=== PATIENT | male | born 1935 | race Caucasian/White ===

== ENCOUNTER → 2022-08-13 10:54 | Outpatient (BNVA) | payer MEDICARE, SELFPAY | PROVIDERS: Family Provider Family Medicine; PCP Family Medicine; Visit Provider Nurse Practitioner Family | DX: I12.9 Hypertensive chronic kidney disease with stage 1 through stage 4 chronic kidney disease, or unspecified chronic kidney disease (principal); N18.32 Chronic kidney disease, stage 3b | CPT/HCPCS: 80048; 99213; 99214 ==

== ENCOUNTER → 2022-11-12 08:35 | Outpatient (BNVA) | payer MEDICARE, SELFPAY | PROVIDERS: Family Provider Family Medicine; PCP Family Medicine; Visit Provider Internal Medicine | DX: I25.10 Atherosclerotic heart disease of native coronary artery without angina pectoris (principal); I12.9 Hypertensive chronic kidney disease with stage 1 through stage 4 chronic kidney disease, or unspecified chronic kidney disease; N18.9 Chronic kidney disease, unspecified | CPT/HCPCS: 99214 ==

== ENCOUNTER → 2022-11-22 09:34 | Outpatient (BNVA) | payer MEDICARE, SELFPAY | PROVIDERS: Family Provider Family Medicine; PCP Family Medicine; Visit Provider Podiatrist Foot & Ankle Surgery | DX: I73.9 Peripheral vascular disease, unspecified (principal); B35.1 Tinea unguium; R60.9 Edema, unspecified; M20.41 Other hammer toe(s) (acquired), right foot; M20.42 Other hammer toe(s) (acquired), left foot; B35.3 Tinea pedis | CPT/HCPCS: 11721; 99204 ==

== ENCOUNTER 2022-11-25 16:55 | Inpatient (IN) | payer MEDICARE, SELFPAY ==
[2022-11-25 17:16] VITALS: BP 135/74; PULSE 130; RESP 17; TEMP 36.8; O2SAT 95; BMI 23.2
--- NOTE | 2022-11-25 17:18 | XRR_ITS ---
PROCEDURE INFORMATION: Exam: XR Chest Exam date and time: 11/25/2022 5:25 PM Age: 87 years old Clinical indication: Pain; Chest pressure; Additional info: Chest pain, body aches, today TECHNIQUE: Imaging protocol: Radiologic exam of the chest. Views: 1 view. COMPARISON: CR XR chest 1V [id number] 02/24/2018 12:33 PM FINDINGS: Lungs: Minimal atelectasis in the lung bases. The lungs are otherwise clear. Pleural spaces: Unremarkable. No pleural effusion. No pneumothorax. Heart/Mediastinum: Unremarkable. No cardiomegaly. Bones/joints: Degenerative changes of the spine. XR/XR chest 1V portable [id number] IMPRESSION: No acute findings.
--- NOTE | 2022-11-25 17:32 | ED_ITS ---
Documented by User: Tramaine Montoya DO 12/02/22 07:48 HPI - Chest Pain General: Chief Complaint: Chest Pain Stated Complaint: HEADACHE/ CHEST PAIN Time Seen by Provider: 11/25/22 17:18 Source: patient Mode of arrival: ambulatory History of Present Illness: 87-year-old male presents to the emergency room complaining of chest pain. Patient was at rest at home had a brief episode of chest pain he also had a headache with it as well. EMS was called he was given 324 of aspirin and 1 sublingual nitro at the time he arrived to the emergency room is a complete resolution of all of his symptoms he had some mild shortness of breath no diaphoresis or nausea. MD complaint: chest pain Associated symptoms: Deny abdominal pain, dyspnea, fever(s), nausea, palpitations or vomiting Review of Systems Const: Denies: fever(s), chills, body aches, change in appetite, fatigue or malaise ENMT: Denies: throat pain, ear or mastoid pain, nasal discharge or nasal congestion Card: Reports: chest pain; Denies: palpitations, irregular heart rhythm, edema, dyspnea on exertion or orthopnea Resp: Denies: dyspnea, productive cough or non-productive cough GI: Denies: abdominal pain, nausea, vomiting, hematemesis, coffee ground emesis, diarrhea, constipation, bloating, hematochezia or melena : Denies: flank pain, dysuria, urinary frequency or urinary urgency Skin/Breast: Denies: rash or pruritus PFSH ED PFSH: Medical History (Updated 11/30/22 @ 00:01 by JOHN Reilly) Acute kidney injury (nontraumatic) BPH NOS w ur obs/LUTS Chronic kidney disease Coronary artery disease History of anemia of chronic disease History of cellulitis Hx of congestive heart failure Hx of diverticulitis of colon Hx of gastroesophageal reflux (GERD) Hx of hyperlipidemia Hx of osteoarthritis Hypertension Neutrophilic leukocytosis Non-ST elevation ND (NSTEMI) Thrombocytopenia Surgical History History of knee replacement History of tonsillectomy History of total hip replacement bilateral Hx of cataract extraction BILATERAL Hx of cholecystectomy Family History Father , in his 80's Diabetes Mother , in her 80's Stroke Other CAD (coronary artery disease) Cancer Hypertension Social History Smoking and tobacco status: never smoked Alcohol intake: former Adopted: No Caregiver/support person: No Lives independently: No Household members: spouse Marital status: Current occupational status: retired Current gender identity: Male Physical Exam 2 Const: GENERAL APPEARANCE: cooperative and comfortable ORIENTATION/CONSCIOUSNESS: Yes awake, Yes oriented to person, Yes oriented to place and Yes oriented to time HENMT: COMMON NORMALS: normocephalic, atraumatic and hearing grossly normal bilaterally HEAD & SCALP: normocephalic and atraumatic Resp: COMMON NORMALS: normal respiratory effort, No retractions, No use of accessory muscles and clear to auscultation bilaterally AUSCULTATION: clear to auscultation bilaterally Cardio: COMMON NORMALS: regular rate, regular rhythm and No murmurs present (Cardio) RATE: regular rate RHYTHM: regular rhythm GI: COMMON NORMALS: Soft to palpation and No hepatosplenomegaly present AUSCULTATION: Yes normoactive bowel sounds PALPATION: Yes Soft to palpation, No Tenderness to palpation present (GI), No Guarding due to palpation present (GI) and Yes No hepatosplenomegaly present Extremity: COMMON NORMALS: normal to inspection, capillary refill normal, no clubbing, cyanosis or edema, no calf tenderness and no pedal edema Neuro: SENSORIUM/ORIENTATION: Yes oriented to person, Yes oriented to place and Yes oriented to time Skin: COMMON NORMALS: no rashes or lesions noted GENERAL SKIN EXAM: no rashes or lesions noted Course Vital Signs: Vital signs: Vital Signs Temperature 97.3 F L 11/29/22 12:00 Pulse Rate 96 11/29/22 12:00 Respiratory Rate 18 11/29/22 12:00 Blood Pressure 157/72 11/29/22 12:00 Pulse Oximetry 95 11/29/22 12:00 Oxygen Delivery Me thod 11/29/22 12:00 MDM - Chest Pain Medical Decision Making Care signed out to Dr. Chamorro at change of shift. See final notes for diagnosis and disposition. Patient presents here with chest pain 2-hour troponin did go up by 17 consistent with an NSTEMI has been pain-free here his EKG is a normal I spoke to cardiology along with hospitalist and will admit at this time for ACS rule out. Lab Data 11/25/22 17:45 11/25/22 17:45 Radiology Impressions Chest X-Ray 11/25/22 17:18 IMPRESSION: No acute findings. Chest/Abdomen/Pelvis CT 11/26/22 06:27 IMPRESSION: 1. Lung evaluation is limited by significant breathing artifact. No dense areas of consolidation identified. Subtle areas of pneumonitis or endobronchial pneumonia may be obscured. 2. No adenopathy in the chest, abdomen or pelvis. 3. Colonic diverticular disease. No acute diverticulitis. 4. Normal appendix. 5. Prior cholecystectomy. 6. Bilateral renal cysts. No renal obstruction. 7. 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 Component of stenosis is likely. No ischemic changes at this time. Laboratory Results WBC 19.1 10^3/uL (4.0-10.0) H 11/25/22 17:45 RBC 3.97 10^6/uL (4.1-5.3) L 11/25/22 17:45 Hgb 12.4 g/dL (11.7-16.6) 11/25/22 17:45 Hct 36.9 % (42.0-52.0) L 11/25/22 17:45 MCV 92.9 fl (80-94) 11/25/22 17:45 MCH 31.2 pg (28.0-34.0) 11/25/22 17:45 MCHC 33.6 g/dL (30.0-36.0) 11/25/22 17:45 RDW 14.3 % (12.1-15.1) 11/25/22 17:45 Plt Count 129 10^3/cmm (130-400) L 11/25/22 17:45 MPV 12.8 fL (7.4-10.4) H 11/25/22 17:45 Neut % (Auto) 86.8 % 11/25/22 17:45 Lymph % (Auto) 2.5 % 11/25/22 17:45 [place] % (Auto) 9.0 % 11/25/22 17:45 Eos % (Auto) 0.0 % 11/25/22 17:45 Baso % (Auto) 0.2 % 11/25/22 17:45 Neut # (Auto) 16.58 10^3/uL (1.8-7.7) H 11/25/22 17:45 Lymph # (Auto) 0.5 10^3/uL (0.8-4.8) L 11/25/22 17:45 [place] # (Auto) 1.7 10^3/uL (0.2-0.9) H 11/25/22 17:45 Eos # (Auto) 0.0 10^3/uL (0.0-0.8) 11/25/22 17:45 Baso # (Auto) 0.0 10^3/uL (0.0-0.1) 11/25/22 17:45 Nucleated RBC % (auto) 0 % 11/25/22 17:45 Nucleated RBCs # 0.0 /100WBC 11/25/22 17:45 Sodium 138 mmol/L (136-145) 11/25/22 17:45 Potassium 3.4 mmol/L (3.5-5.1) L 11/25/22 17:45 Chloride 103 mmol/L (98-107) 11/25/22 17:45 Carbon Dioxide 22 mmol/L (22-29) 11/25/22 17:45 Anion Gap 16.4 (5-19) 11/25/22 17:45 BUN 23 mg/dL (8-23) 11/25/22 17:45 Creatinine 1.1 mg/dL (0.7-1.2) 11/25/22 17:45 GFR Calculation Not Reportable 11/25/22 17:45 Glucose 149 mg/dL (65-115) H 11/25/22 17:45 Calculated Osmolality 292 mOsm/kg (285-295) 11/25/22 17:45 Calcium 9.2 mg/dL (8.5-10.5) 11/25/22 17:45 Total Bilirubin 0.7 mg/dL (0.15-1.2) 11/25/22 17:45 AST 29 U/L (0-40) 11/25/22 17:45 ALT 17 U/L (0-41) 11/25/22 17:45 Alkaline Phosphatase 30 U/L (40-130) L 11/25/22 17:45 Troponin T Baseline 41 ng/L (0-15) H 11/25/22 17:45 Troponin T 120 Minute 58.37 ng/L (0-15) H 11/25/22 19:30 Delta Troponin T 17.37 ABS# (0-10) H* 11/25/22 19:30 Total Protein 6.3 g/dL (6.6-8.7) L 11/25/22 17:45 Albumin 4.1 g/dL (3.5-5.2) 11/25/22 17:45 Globulin 2.2 g/dL (1.3-4.6) 11/25/22 17:45 Discharge Plan Discharge Patient Disposition: Admitted As Inpatient Admit Provider: Simon Morales Clinical Impression: Non-ST elevation ND (NSTEMI) Condition: Stable Coding Level of Care Code ED Flexible Shaft Winder for Chg Fwd Documented by User: Dat hCamorro MD 11/25/22 20:25 HPI - Chest Pain General: Chief Complaint: Chest Pain Stated Complaint: HEADACHE/ CHEST PAIN Time Seen by Provider: 11/25/22 17:18 PFSH ED PFSH: Medical History (Updated 11/30/22 @ 00:01 by JOHN Reilly) Acute kidney injury (nontraumatic) BPH NOS w ur obs/LUTS Chronic kidney disease Coronary artery disease History of anemia of chronic disease History of cellulitis Hx of congestive heart failure Hx of diverticulitis of colon Hx of gastroesophageal reflux (GERD) Hx of hyperlipidemia Hx of osteoarthritis Hypertension Neutrophilic leukocytosis Non-ST elevation ND (NSTEMI) Thrombocytopenia Surgical History History of knee replacement History of tonsillectomy History of total hip replacement bilateral Hx of cataract extraction BILATERAL Hx of cholecystectomy Family History Father , in his 80's Diabetes Mother , in her 80's Stroke Other CAD (coronary artery disease) Cancer Hypertension Social History Smoking and tobacco status: never smoked Alcohol intake: former Adopted: No Caregiver/support person: No Lives independently: No Household members: spouse Marital status: Current occupational status: retired Current gender identity: Male Course Vital Signs: Vital signs: Vital Signs Temperature 97.3 F L 11/29/22 12:00 Pulse Rate 96 11/29/22 12:00 Respiratory Rate 18 11/29/22 12:00 Blood Pressure 157/72 11/29/22 12:00 Pulse Oximetry 95 11/29/22 12:00 Oxygen Delivery Me thod 11/29/22 12:00 MDM - Chest Pain Medical Decision Making Patient presents here with chest pain 2-hour troponin did go up by 17 consistent with an NSTEMI has been pain-free here his EKG is a normal I spoke to cardiology along with hospitalist and will admit at this time for ACS rule out. Lab Data 11/25/22 17:45 11/25/22 17:45 Radiology Impressions Chest X-Ray 11/25/22 17:18 IMPRESSION: No acute findings. Chest/Abdomen/Pelvis CT 11/26/22 06:27 IMPRESSION: 1. Lung evaluation is limited by significant breathing artifact. No dense areas of consolidation identified. Subtle areas of pneumonitis or endobronchial pneumonia may be obscured. 2. No adenopathy in the chest, abdomen or pelvis. 3. Colonic diverticular disease. No acute diverticulitis. 4. Normal appendix. 5. Prior cholecystectomy. 6. Bilateral renal cysts. No renal obstruction. 7. 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 Component of stenosis is likely. No ischemic changes at this time. Laboratory Results WBC 19.1 10^3/uL (4.0-10.0) H 11/25/22 17:45 RBC 3.97 10^6/uL (4.1-5.3) L 11/25/22 17:45 Hgb 12.4 g/dL (11.7-16.6) 11/25/22 17:45 Hct 36.9 % (42.0-52.0) L 11/25/22 17:45 MCV 92.9 fl (80-94) 11/25/22 17:45 MCH 31.2 pg (28.0-34.0) 11/25/22 17:45 MCHC 33.6 g/dL (30.0-36.0) 11/25/22 17:45 RDW 14.3 % (12.1-15.1) 11/25/22 17:45 Plt Count 129 10^3/cmm (130-400) L 11/25/22 17:45 MPV 12.8 fL (7.4-10.4) H 11/25/22 17:45 Neut % (Auto) 86.8 % 11/25/22 17:45 Lymph % (Auto) 2.5 % 11/25/22 17:45 [place] % (Auto) 9.0 % 11/25/22 17:45 Eos % (Auto) 0.0 % 11/25/22 17:45 Baso % (Auto) 0.2 % 11/25/22 17:45 Neut # (Auto) 16.58 10^3/uL (1.8-7.7) H 11/25/22 17:45 Lymph # (Auto) 0.5 10^3/uL (0.8-4.8) L 11/25/22 17:45 [place] # (Auto) 1.7 10^3/uL (0.2-0.9) H 11/25/22 17:45 Eos # (Auto) 0.0 10^3/uL (0.0-0.8) 11/25/22 17:45 Baso # (Auto) 0.0 10^3/uL (0.0-0.1) 11/25/22 17:45 Nucleated RBC % (auto) 0 % 11/25/22 17:45 Nucleated RBCs # 0.0 /100WBC 11/25/22 17:45 Sodium 138 mmol/L (136-145) 11/25/22 17:45 Potassium 3.4 mmol/L (3.5-5.1) L 11/25/22 17:45 Chloride 103 mmol/L (98-107) 11/25/22 17:45 Carbon Dioxide 22 mmol/L (22-29) 11/25/22 17:45 Anion Gap 16.4 (5-19) 11/25/22 17:45 BUN 23 mg/dL (8-23) 11/25/22 17:45 Creatinine 1.1 mg/dL (0.7-1.2) 11/25/22 17:45 GFR Calculation Not Reportable 11/25/22 17:45 Glucose 149 mg/dL (65-115) H 11/25/22 17:45 Calculated Osmolality 292 mOsm/kg (285-295) 11/25/22 17:45 Calcium 9.2 mg/dL (8.5-10.5) 11/25/22 17:45 Total Bilirubin 0.7 mg/dL (0.15-1.2) 11/25/22 17:45 AST 29 U/L (0-40) 11/25/22 17:45 ALT 17 U/L (0-41) 11/25/22 17:45 Alkaline Phosphatase 30 U/L (40-130) L 11/25/22 17:45 Troponin T Baseline 41 ng/L (0-15) H 11/25/22 17:45 Troponin T 120 Minute 58.37 ng/L (0-15) H 11/25/22 19:30 Delta Troponin T 17.37 ABS# (0-10) H* 11/25/22 19:30 Total Protein 6.3 g/dL (6.6-8.7) L 11/25/22 17:45 Albumin 4.1 g/dL (3.5-5.2) 11/25/22 17:45 Globulin 2.2 g/dL (1.3-4.6) 11/25/22 17:45 Discharge Plan Discharge Patient Disposition: Admitted As Inpatient Admit Provider: Simon Morales Clinical Impression: Non-ST elevation ND (NSTEMI) Condition: Stable Coding Level of Care Code ED Flexible Shaft Winder for Adelaide Soria
--- NOTE | 2022-11-25 17:33 | ECG_ITS ---
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 Measurements Intervals [place] Rate: 111 P: 39 [place]: 256 QRS: 4 QRSD: 86 T: 62 QT: 350 QTc: 478 Interpretive Statements SINUS TACHYCARDIA WITH FIRST DEGREE AV BLOCK NONSPECIFIC T-WAVE ABNORMALITY Compared to ECG 02/24/2018 20:04:49 Sinus rhythm no longer present T-wave abnormality still present Electronically Signed On 11-25-2022 20:07:26 ELECTRICAL ESTIMATOR by Noe Salazar M.D. [email or web address]
[2022-11-25 18:08] LABS: Basophils % 0.2 %; Hematocrit 36.9 % (42.0-52.0); Hemoglobin 12.4 g/dL (11.7-16.6); Lymphocytes # 0.5 10^3/uL (0.8-4.8); Lymphocytes % 2.5 %; Mean Corpuscular HGB Conc 33.6 g/dL (30.0-36.0); Mean Corpuscular Hemoglobin 31.2 pg (28.0-34.0); Mean Corpuscular Volume 92.9 fl (80-94); Mean Platelet Volume 12.8 fL (7.4-10.4); Monocytes # 1.7 10^3/uL (0.2-0.9); Neutrophils # 16.58 10^3/uL (1.8-7.7); Neutrophils % 86.8 %; Nucleated Red Blood Cells % 0 %; Platelet Count 129 10^3/cmm (130-400); Red Blood Count 3.97 10^6/uL (4.1-5.3); Red Cell Distribution Width 14.3 % (12.1-15.1); White Blood Count 19.1 10^3/uL (4.0-10.0)
--- NOTE | 2022-11-25 18:24 | PC.NURSE ---
pt was given aspiring by EMS
[2022-11-25 18:42] LABS: Troponin(5th) Baseline 41 ng/L (0-15)
[2022-11-25 18:43] VITALS: BP 122/48; PULSE 91; RESP 16; O2SAT 95
[2022-11-25 18:45] LABS: Alanine Aminotransferase 17 U/L (0-41); Albumin Level 4.1 g/dL (3.5-5.2); Alkaline Phosphatase 30 U/L (40-130); Anion Gap 16.4 (5-19); Aspartate Amino Transferase 29 U/L (0-40); Blood Urea Nitrogen 23 mg/dL (8-23); Calcium 9.2 mg/dL (8.5-10.5); Carbon Dioxide 22 mmol/L (22-29); Chloride 103 mmol/L (98-107); Globulin 2.2 g/dL (1.3-4.6); Glucose 149 mg/dL (65-115); Osmolality Calculated 292 mOsm/kg (285-295); Potassium 3.4 mmol/L (3.5-5.1); Sodium 138 mmol/L (136-145); Total Bilirubin 0.7 mg/dL (0.15-1.2); Total Protein 6.3 g/dL (6.6-8.7)
[2022-11-25 19:00] VITALS: BP 152/67; PULSE 78; RESP 14; O2SAT 95
[2022-11-25 20:00] VITALS: BP 134/62; PULSE 69; RESP 16; O2SAT 96
[2022-11-25 20:05] LABS: Troponin 5 2HR 58.37 ng/L (0-15)
[2022-11-25 20:12] LABS: Troponin 5 2HR Delta 17.37 ABS# (0-10)
[2022-11-25] MEDS: enoxaparin 80 mg/0.8 mL Syringe 65 MG SUBCUT (20:32)
--- NOTE | 2022-11-25 20:44 | USCV_ITS ---
Satnam Coffman Age: 87 Gender: M : 1935 Exam Date: 11/25/2022 23:02 Ordering Phys: Simon Morales MD Technologist: CARTER [place] [facility] [place]: chest pain, history of cardiac stent 10 to 15 years ago. BP: 134 / 62 HR: 85 Rhythm: Sinus Technical Quality: Fair MEASUREMENTS (Male / Female) Normal Values 2D ECHO LV Diastolic Diameter PLAX 3.5 cm 4.2 - 5.9 / 3.9 - 5.3 cm LV Systolic Diameter PLAX 2.1 cm IVS Diastolic Thickness 1.2 cm 0.6 - 1.0 / 0.6 - 0.9 cm IVS Systolic Thickness 1.2 cm LVPW Diastolic Thickness 1.2 cm 0.6 - 1.0 / 0.6 - 0.9 cm LVPW Systolic Thickness 1.5 cm LVOT Diameter 2.1 cm LV Ejection Fraction 2D Teich 72.1 % LV Ejection Fraction MOD 2C 54.0 % LV Ejection Fraction 2C AL 53.9 % LA Diameter 3.5 cm LA Width 2.0 cm LA Height 5.2 cm RA Width 3.1 cm RA Height 4.0 cm Aorta at Sinotubular Diameter 2.6 cm IVC Diameter 2.0 cm M-MODE Aortic Annulus Diameter 2.7 cm LA Ao Ratio MM 1.4 MV E Point Septal Separation 0.4 cm DOPPLER AV Peak Velocity 134.0 cm/s LVOT Peak Velocity 110.0 cm/s AV Area Cont Eq vti 2.4 cm squared AV Area Cont Eq pk 2.8 cm squared MV Area PHT 3.0 cm squared Mitral E to A Ratio 0.6 MV E' Velocity 37.0 cm/s Mitral E to MV E' Ratio 7.4 Mitral E to LV E' Lateral Ratio 6.2 Mitral E to LV E' Septal Ratio 9.3 TR Peak Velocity 208.0 cm/s TR Peak Gradient 17.3 mmHg TV Peak E Velocity 54.0 cm/s Right Atrial Pressure 5.0 mmHg Pulmonary Artery Systolic Pressu 22.3 mmHg PV Peak Velocity 87.0 cm/s RV Acceleration Time 0.1 s RV Ejection Time 0.3 s RV AcT/ET 0.3 FINDINGS Left Ventricle Normal left ventricular size, systolic function and mildly increased wall thickness, with no diagnostic regional wall motion abnormalities. Left ventricular ejection fraction is estimated at 55-60 %. Grade I diastolic dysfunction (abnormal relaxation filling pattern), normal to mildly elevated filling pressures. Right Ventricle Normal right ventricular size and systolic function. Right ventricular systolic pressure 22.3 mmHg. Right Atrium Normal right atrial size. Left Atrium Normal left atrial size. Mitral Valve Structurally normal mitral valve. No mitral valve stenosis. No mitral valve regurgitation. Aortic Valve Mildly thickened trileaflet aortic valve. No aortic valve stenosis. Trace to mild aortic valve regurgitation. Tricuspid Valve Structurally normal tricuspid valve. Trace tricuspid valve regurgitation. Pulmonic Valve Pulmonic valve not well visualized. Pericardium No pericardial effusion. Aorta Normal size aortic root and proximal ascending aorta. IVC Normal IVC dimension with >50% respiratory change of the inferior vena cava. CONCLUSIONS 1. Normal left ventricular size, systolic function and mildly increased wall thickness, with no diagnostic regional wall motion abnormalities. Left ventricular ejection fraction is estimated at 55-60 %. Grade I diastolic dysfunction (abnormal relaxation filling pattern), normal to mildly elevated filling pressures. 2. Trace to mild aortic valve regurgitation. 3. No prior similar studies to compare. Trisha Middleton MD (Electronically Signed) Final Date: 26 November 2022 08:22 S
--- NOTE | 2022-11-25 20:45 | PM.HP ---
Providers/Chief Complaint Admitting Physician: Simon Morales MD Primary Care Provider: Chanda Ware DO Chief Complaint: HEADACHE/ CHEST PAIN History of Present Illness Satnam Coffman is a 87 year old male with PMH of HTN , hypothyroidism, CAD S/P PCI 2008 came in today with c/o chest tightness which started today afternoon lasted for about 5 mins, at that time patient states that he was also feeling cold and was having chills, he again experienced another episode some time later that too lasted transiently, describe the tightness as substernal, non radiating more like pressure, denied any palpitation, diaphoresis, nausea, vomiting, fever,cough, sob. for the last1 week or so he is also experincing, increased urinary frequency as well as burning while passing urine. EKG: Has shown: ST with 1st degree A.V Block , xray chest : No acute findings Pertinent Labs : WBC: 19. H&H: 12/36 , PLT : 129 , Na: 138 , k: 3.4 BUN/SCR: 23/1.1 Troponin Trend: 41-58- Patient received 1 dose of therapeutic lovenox as well as [id number] po *1 dose Review of Systems General: Reports: 10 or more systems reviewed and unremarkable except in HPI and below Const: Denies: fever(s), chills, body aches, change in appetite or diaphoresis Card: Denies: palpitations, edema, swelling of feet/ankles, dyspnea on exertion, orthopnea or leg pain with exertion Resp: Denies: dyspnea, productive cough, wheezing or pain on inspiration GI: Denies: abdominal pain, nausea, vomiting, diarrhea or constipation : Denies: flank pain or difficulty urinating Musc: Denies: back pain, extremity pain or extremity swelling Neuro: Denies: headache(s), difficulty walking or confusion Medications/Allergies Home Medications Medication Instructions Recorded Confirmed Last Taken Type clopidogrel 75 mg tablet 75 mg PO DAILY 12/03/19 11/22/22 Unknown History doxazosin 2 mg tablet (Cardura) See Rx Instructions PO DAILY 12/03/19 11/22/22 Unknown History hydrocodone 10 mg-acetaminophen 1 tab PO TID PRN 12/03/19 11/22/22 Unknown History 325 mg tablet immrqxdjbpxx-csxeoddy-zufobj tablet 1 tab PO DAILY 12/03/19 11/22/22 Unknown History omeprazole 20 mg capsule,delayed 20 mg PO DAILY 12/03/19 11/22/22 Unknown History release simvastatin 20 mg tablet 20 mg PO DAILY 12/03/19 11/22/22 Unknown History tamsulosin 0.4 mg capsule 0.4 mg PO DAILY #30 caps 06/09/20 11/22/22 Unknown Rx fluticasone propionate 50 2 spray intranasal DAILY 06/24/20 11/22/22 Unknown History mcg/actuation nasal spray,suspension aspirin 81 mg tablet,delayed 81 mg PO DAILY 12/26/20 11/22/22 Unknown History release (Adult Low Dose Aspirin) gabapentin 300 mg capsule 300 mg PO DAILY PRN 05/14/22 11/22/22 Unknown History levothyroxine 50 mcg tablet 50 mcg PO DAILY 05/14/22 11/22/22 Unknown History metoprolol succinate 50 mg 50 mg PO DAILY 08/13/22 11/22/22 Unknown History tablet,extended release 24 hr (Toprol XL) valsartan 80 mg tablet 160 mg PO BID #90 tabs 10/18/22 11/22/22 Unknown Rx furosemide 40 mg tablet 40 mg PO DAILY 11/22/22 11/22/22 Unknown History Allergies Allergy/AdvReac Type Severity Reaction Status Date / Time Penicillins AdvReac ALGY-Rash Verified 11/22/22 09:48 PFSH Acute PFSH: Medical History BPH NOS w ur obs/LUTS Chronic kidney disease Surgical History History of knee replacement History of tonsillectomy History of total hip replacement bilateral Hx of cataract extraction BILATERAL Hx of cholecystectomy Family History Father , in his 80's Diabetes Mother , in her 80's Stroke Other CAD (coronary artery disease) Cancer Hypertension Social History Smoking and tobacco status: never smoked Alcohol intake: former Adopted: No Caregiver/support person: No Lives independently: No Household members: spouse Marital status: Current occupational status: retired Current gender identity: Male Vitals/I&O/Wt Last Vital Signs Temp 98.2 F 11/25/22 17:16 Pulse 69 11/25/22 20:00 Resp 16 11/25/22 20:00 BP 134/62 11/25/22 20:00 Pulse Ox 96 11/25/22 20:00 O2 Del Method 11/25/22 17:16 Weight last 48 hrs Weight 65.317 kg Physical Exam Const: COMMON NORMALS: patient oriented x3 HENMT: COMMON NORMALS: normocephalic, atraumatic and external ears normal HEAD & SCALP: normocephalic and atraumatic Chest: COMMONS NORMALS: normal inspection of the chest and normal palpation of entire chest wall CHEST: Yes Symmetrical chest wall rise Resp: COMMON NORMALS: normal respiratory effort, No retractions, No use of accessory muscles and clear to auscultation bilaterally EFFORT & INSPECTION: Yes symmetric chest movement AUSCULTATION: clear to auscultation bilaterally Cardio: COMMON NORMALS: regular rate, regular rhythm, S1 normal heart sound present, S2 normal heart sound present, No gallops present (Cardio), No murmurs present (Cardio), No rub (Cardio) and Peripheral pulses 2+ throughout RATE: regular rate RHYTHM: regular rhythm HEART SOUNDS: S1 normal heart sound present and S2 normal heart sound present PERIPHERAL PULSES: Peripheral pulses 2+ throughout GI: COMMON NORMALS: Normal to inspection, nondistended, normoactive bowel sounds present, Soft to palpation, non-tender, No hepatosplenomegaly present and no masses AUSCULTATION: Yes normoactive bowel sounds PALPATION: Yes Soft to palpation and Yes No hepatosplenomegaly present RECTAL EXAM: Yes deferred Extremity: COMMON NORMALS: no clubbing, cyanosis or edema and no pedal edema Neuro: COMMON NORMALS: patient oriented x3 Data 11/25/22 17:45 11/25/22 17:45 A&P Assessment and plan (1) Non-ST elevation RI (NSTEMI): (2) Hypertension: (3) Coronary artery disease: (4) Thrombocytopenia: Plan MH of HTN , hypothyroidism, CAD S/P PCI 2009 came in today with c/o chest tightness which started today afternoon lasted for about 5 mins, at that time patient states that he was also feeling cold and was having chills, he again experienced another episode some time later that too lasted transiently, describe the tightness as substernal, non radiating more like pressure, denied any palpitation, diaphoresis, nausea, vomiting, fever,cough, sob. for the last1 week or so he is also experincing, increased urinary frequency as well as burning while passing urine. Assessment : NSTEMI: EKG: Has shown: ST with 1st degree A.V Block , xray chest : No acute findings Serial EKG Monitoring Troponin Trend: 41-58 2DCHO : Have received Therapeutic Lovenox Continue ACS Protocol ( Aspirin, statin, beta,greg, ) Telemetry monitoring NPO After midnight for possible CAG+-: PCI Cardiology on board H/O CAD S/P PCI: On Aspirin, statin, beta,greg,plavix H/O hypothyroidism: Am TSH Continue Levothyroxine H/O HTN : On Valsartan, doxazosin as well as metoprolol Code Status :Full code DVT PPX: Not needed on Therapeutic Lovenox. Attestations Medical Necessity Statement*: Patient needs to be in hospital for the management of NSTEMI. Anticipated LOS Greater then 2 midnights. Coding Level of Care Code 77062 Diagnoses Non-ST elevation RI (NSTEMI) I21.4 Hypertension I10 Coronary artery disease I25.10 Thrombocytopenia D69.6
[2022-11-25 21:24] VITALS: BP 146/71; PULSE 72; RESP 24; TEMP 36.6; O2SAT 95
--- NOTE | 2022-11-25 21:29 | PC.NURSE ---
Patient received from ED via wheelchair. Patient able to ambulate to bathroom without difficulty, denies pain at this time. Dr Morales in to see patient upon arrival. Admission completed as documented.
[2022-11-25 21:31] VITALS: BMI 24.3
[2022-11-25] MEDS: atorvastatin 40 mg Tablet 80 MG PO (21:43)
[2022-11-25 22:19] LABS: Specific Gravity, Urine 1.015 (1.005-1.030); Urine Appearance Clear (CLEAR); Urine Color Yellow (Yellow); pH Urine 6 (5-7)
[2022-11-25 22:20] LABS: Add Urine Microscopic? YES; Bilirubin Urine Neg (Negative); Blood Urine 3+ (Negative); Glucose Urine UA Norm (Normal); Ketones Urine Negative (Negative); Leukocyte Esterase Urine 2+ (Negative); Nitrate Urine Positive (Negative); Protein Urine Neg (Negative); Urobilinogen Urine Norm (Negative)
[2022-11-25 22:26] LABS: RBC Urine 80-100 /hpf (0-2); WBC Urine 80-100 /hpf (0-5)
[2022-11-25 22:27] LABS: Squamous Epithelial Cell Urine 0-4 /hpf (0-5)
[2022-11-25 22:28] LABS: Add Urine Culture? Yes; Bacteria Urine 2+ /hpf
[2022-11-25 22:38] VITALS: PULSE 87
--- NOTE | 2022-11-25 23:18 | ECG_ITS ---
[facility] Test Date: 2022-11-25 Pat Name: Satnam Coffman Department: Room: Gender: Male Manager Business Intelligence: : 1935 Requested By: Tramaine Walsh Order Number: [id number] Matthew MD: Noe Salazar M.D. Measurements Intervals [place] Rate: 76 P: 0 FL: 0 QRS: 12 QRSD: 81 T: 40 QT: 378 QTc: 425 Interpretive Statements SINUS RHYTHM WITH 2ND DEGREE AV BLOCK, 2:1 OR MOBITZ TYPE II CRITICAL TEST RESULT Compared to ECG 11/25/2022 17:33:02 Sinus tachycardia no longer present First degree AV block no longer present T-wave abnormality no longer present Electronically Signed On 11-25-2022 20:19:07 [employer]ER[employer] SUPERVISOR by Noe Salazar M.D. [id number]
[2022-11-26] VITALS (9 sets, daily range): BP systolic 131–163; BP diastolic 50–62; PULSE 66–94; RESP 17–30; TEMP 36.8–37.7; O2SAT 92–96
[2022-11-26 00:09] LABS: Troponin 5 6HR 80.83 ng/L (0-15)
[2022-11-26 00:13] LABS: Troponin 5 6HR Delta 39.83 ng/L (0-12)
[2022-11-26 03:58] LABS: Basophils # 0.1 10^3/uL (0.0-0.1); Basophils % 0.3 %; Hematocrit 35.6 % (42.0-52.0); Lymphocytes # 0.6 10^3/uL (0.8-4.8); Lymphocytes % 1.4 %; Mean Corpuscular HGB Conc 33.7 g/dL (30.0-36.0); Mean Corpuscular Hemoglobin 31.3 pg (28.0-34.0); Mean Corpuscular Volume 92.7 fl (80-94); Mean Platelet Volume 12.8 fL (7.4-10.4); Monocytes # 3.7 10^3/uL (0.2-0.9); Monocytes % 8.6 %; Neutrophils # 36.52 10^3/uL (1.8-7.7); Nucleated Red Blood Cells % 0 %; Platelet Count 119 10^3/cmm (130-400); Red Blood Count 3.84 10^6/uL (4.1-5.3); Red Cell Distribution Width 14.6 % (12.1-15.1)
--- NOTE | 2022-11-26 04:12 | PC.NURSE ---
Informed Dr Morales related to lab changes to WBC from 19.1 to 43 Received telephone order to repeat CBC lab draw. RBVO
[2022-11-26 04:38] LABS: Hematocrit 33.7 % (42.0-52.0); Hemoglobin 11.3 g/dL (11.7-16.6); Mean Corpuscular HGB Conc 33.5 g/dL (30.0-36.0); Mean Corpuscular Hemoglobin 31.7 pg (28.0-34.0); Mean Corpuscular Volume 94.4 fl (80-94); Mean Platelet Volume 12.9 fL (7.4-10.4); Platelet Count 120 10^3/cmm (130-400); Red Blood Count 3.57 10^6/uL (4.1-5.3); Red Cell Distribution Width 14.5 % (12.1-15.1)
[2022-11-26 04:40] LABS: Alanine Aminotransferase 27 U/L (0-41); Albumin Level 3.8 g/dL (3.5-5.2); Alkaline Phosphatase 26 U/L (40-130); Anion Gap 15.5 (5-19); Aspartate Amino Transferase 37 U/L (0-40); Blood Urea Nitrogen 23 mg/dL (8-23); Carbon Dioxide 22 mmol/L (22-29); Chloride 106 mmol/L (98-107); Globulin 2.4 g/dL (1.3-4.6); Glucose 120 mg/dL (65-115); Magnesium 1.8 mg/dL (1.7-2.3); NT Pro B Type Natriuretic Pept 2841 pg/mL (0-450); Osmolality Calculated 295 mOsm/kg (285-295); Potassium 3.5 mmol/L (3.5-5.1); Sodium 140 mmol/L (136-145); Thyroid Stimulating Hormone 1.13 uIU/mL (0.27-4.20); Total Bilirubin 1.6 mg/dL (0.15-1.2); Total Protein 6.2 g/dL (6.6-8.7)
[2022-11-26] MEDS: cefTRIAXone 1,000 MG in sodium chloride 0.9% (plus) 50 ML 100 MG IV (04:42)
[2022-11-26 05:24] LABS: Slide Review Slide Review Perform
[2022-11-26 05:26] LABS: White Blood Count 44.1 10^3/uL (4.0-10.0)
[2022-11-26 05:27] LABS: Total Cells Counted 100 (0-100)
[2022-11-26 05:29] LABS: Absolute Segmented Neutrophil 37.5 10/cmm (1.6-7.1); Segmented Neutrophils 85 %
[2022-11-26 05:30] LABS: Band Neutrophils Absolute 2.2 10^3/cmm (0.0-1.2); Lymphocytes 1 %
[2022-11-26 05:31] LABS: Absolute Neutrophil 39.7 10^3/cmm (1.4-6.5); Eosinophils 0 %; Lymphocytes Absolute 0.4 10^3/cmm (1.2-3.4); Platelet Estimate Decreased (Normal)
[2022-11-26 05:32] LABS: Rouleau 1+
--- NOTE | 2022-11-26 06:27 | CT_ITS ---
WS: [id number] CT CHEST, ABDOMEN AND PELVIS WITH CONTRAST HISTORY: MARKED LEUCOCYTOSIS TECHNIQUE: Contiguous 5 mm axial imaging performed through the chest, abdomen and pelvis with IV cont rast, oral contrast has not been provided. Coronal and sagittal reformats chest. Coronal and sagittal reformats through the abdomen and pelvis. All CT scans at [facility] use at least one of the se dose optimization techniques: automated exposure control; mA and/or kV adjustment per patient size (includes targeted exams where dose is matched to clinical indication); or iterative reconstruction. CONTRAST: Omnipaque 350; 95 mL IV. DLP: 999.74 mGy.cm COMPARISON: 09/30/[address]: Breathing motion artifact. No dense areas of consolidation. Early changes of mild pneumonit is or tree-in-bud airspace disease would be obscured with this amount of motion. No lobar collapse or dense pneumonia. Moderate atherosclerotic plaque within the thoracic aorta. Normal size pulmonary ar capri. Mild enlargement of the LEFT heart chambers. No pericardial effusion. No pleural effusion. No a denopathy. Dense coronary artery calcifications. Abdomen CT: Normal size liver. Hepatic cyst towards the diaphragm with the largest measuring 13 mm. N o solid mass or duct dilatation. Normal portal vein. Prior cholecystectomy. Spleen and pancreas are n egative. No adrenal mass. Kidneys are normal size with bilateral renal cysts. Largest cyst within the lower pole of each kidney. Largest on the RIGHT measures 7.0 x 5.6 cm. Similar size cysts on the LEF T. No solid mass. Moderate atherosclerotic plaque throughout the aorta. Dense calcification at the or igin of the celiac axis and SMA. Component of stenosis is likely. Plaque is also present at the origi n of the renal arteries. No free fluid or adenopathy. No ischemic changes in the GI tract. The appendix is normal. Numerous di verticula throughout the colon. No evidence for acute diverticulitis. Hernia defect in the RIGHT lateral abdominal wall contains fat only. Pelvic CT: Well-distended urinary bladder. Artifact causing significant obscuration of the pelvis fro m hardware in the hips. CT/CT chest abdpel w/*[id number] IMPRESSION: 1. Lung evaluation is limited by significant breathing artifact. No dense area s of consolidation identified. Subtle areas of pneumonitis or endobronchial pne umonia may be obscured. 2. No adenopathy in the chest, abdomen or pelvis. 3. Colonic diverticular disease. No acute diverticulitis. 4. Normal appendix. 5. Prior cholecystectomy. 6. Bilateral renal cysts. No renal obstruction. 7. 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 Component of stenosis is likely. No ischemic changes at this time.
[2022-11-26] MEDS: sodium chloride 0.9% 1,000 ML 30 ML IV (07:00)
[2022-11-26] MEDS: sodium chloride 0.9% 500 ML IV (07:17)
[2022-11-26 07:21] LABS: Lactic Sepsis W/Reflex 1.6 mmol/L (0.5-2.2)
[2022-11-26 07:30] LABS: Procalcitonin 0.78 ng/mL (0-0.5)
[2022-11-26] MEDS: meropenem 500 MG in sodium chloride 0.9% (plus) 50 ML 100 MG IV ×3 (07:45→22:47)
[2022-11-26] MEDS: vancomycin 1,000 MG in sodium chloride 0.9% 250 ML 250 MG IV (08:00)
--- NOTE | 2022-11-26 08:13 | PC.PHAR ---
Addendum entered by Rosemary Reynolds 11/26/22 08:19: pt and pts states the pt takes plavix 75mg daily ext med history doesnt show [facility] to verify Original Note: pt and pts verified pts medications-pt states the dced his lasix 40mg po every other day pts state the bottle was dated [facility] not [facility] to verify-pt and pts state the pt still takes doxazosin 2mg take 1mg hs ext med history doesnt show when last filled-toprol xl 50mg daily was on a previously entered med list pt and pts states the pt doesnt take that medication-
--- NOTE | 2022-11-26 09:02 | PM.PN ---
Subjective Subjective: seen this am chest pain free today says he feels well Vitals/I&O/Wt Last Vital Signs Temp 98.4 F 11/26/22 11:32 Pulse 88 11/26/22 11:32 Resp 30 H 11/26/22 11:32 BP 151/50 11/26/22 11:32 Pulse Ox 95 11/26/22 11:32 O2 Del Method 11/26/22 11:32 11/25/22 11/26/22 11/26/22 22:59 06:59 14:59 Intake Total 50 / 50 480 / 480 Output Total 50 / 50 100 / 150 200 / 200 Balance -50 / -50 -50 / -100 280 / 280 Weight last 48 hrs Weight 67.086 kg Weight 68.402 kg Weight 65.317 kg Physical Exam Narrative: General: Alert oriented x3, patient seen sitting up in bed appearing comfortable HEENT: Normocephalic, atraumatic, EOMI, breathing normally Cardio: Regular rate rhythm, normal S1-S2, Respiratory: Good bilateral air entry, no wheezes no rhonchi appreciated GI: Abdomen soft, nontender, nondistended, bowel sounds + Behavior: Appropriate and cooperative Extremities: no edema Data 11/26/22 04:30 11/26/22 03:42 Micro: Microbiology 11/26/22 06:45 Blood Culture - Preliminary Blood SPECIMEN COLLECTED 11/26/22 06:43 Blood Culture - Preliminary Blood SPECIMEN COLLECTED A&P Assessment and plan (1) Non-ST elevation MN (NSTEMI): (2) Hypertension: (3) Coronary artery disease: (4) Thrombocytopenia: Plan MH of HTN , hypothyroidism, CAD S/P PCI 2008 came in today with c/o chest tightness which started today afternoon lasted for about 5 mins, at that time patient states that he was also feeling cold and was having chills, he again experienced another episode some time later that too lasted transiently, describe the tightness as substernal, non radiating more like pressure, denied any palpitation, diaphoresis, nausea, vomiting, fever,cough, sob. for the last1 week or so he is also experincing, increased urinary frequency as well as burning while passing urine. Assessment : NSTEMI: EKG: Has shown: ST with 1st degree A.V Block , xray chest : No acute findings Serial EKG Monitoring Troponin Trend: 41-58 2DCHO : Have received Therapeutic Lovenox Continue ACS Protocol ( Aspirin, statin, beta,greg, ) Telemetry monitoring NPO After midnight for possible CAG+-: PCI Cardiology on board . await further recommendations. H/O CAD S/P PCI: On Aspirin, statin, beta,greg,plavix H/O hypothyroidism: Am TSH Continue Levothyroxine H/O HTN : On Valsartan, doxazosin as well as metoprolol Code Status :Full code DVT PPX: Not needed on Therapeutic Lovenox. Attestations Medical Necessity Statement*: continue in hospital stay for management of NSTEMI Diagnoses Non-ST elevation MN (NSTEMI) I21.4 Hypertension I10 Coronary artery disease I25.10 Thrombocytopenia D69.6
[2022-11-26] MEDS: iohexol 350 mg/mL 500 mL Btl (per mL) IV (09:20)
--- NOTE | 2022-11-26 09:38 | P.CONIM_ITS ---
Providers/Reason For Consult Consulting Physician/Specialty*: Dr. Middleton, Cardiology Reason for Consult*: Chest pressure and elevated troponin Attending Physician: Bri Rojas MD Primary Care Provider: Chanda Ware DO History of Present Illness History of Present Illness Satnam Coffman is a 87 year old male with PMHx of HTN , hypothyroidism, CAD S/P PCI 2008. He was in usual state of health and was recently seen in cardiology office. He came to the ER with c/o chest tightness and headache which started yesterday afternoon and lasted for about 5 mins. He had another episode some time later that too lasted few minutes. CP described as tightness, substernal, non radiating more like pressure. He denied any palpitation, diaphoresis, nausea, vomiting, fever,cough, sob. For the last week, he is also experincing, increased urinary frequency as well as burning while passing urine. He has been chest pain free overnight and this morning. He was accompanied by his . WBC: 19-->44. H&H: , PLT : 129 , k: 3.4 BUN/SCR: 01/11. Troponin Trend: 41-58-81. He received 1 dose of therapeutic lovenox? and [id number] mg. Review of Systems General: Reports: 10 or more systems reviewed and unremarkable except in HPI and below Const: Denies: fever(s), chills, body aches, change in appetite or diaphoresis Card: Reports: chest pain; Denies: palpitations, edema, swelling of feet/ankles, dyspnea on exertion, orthopnea or leg pain with exertion Resp: Denies: dyspnea, productive cough, wheezing or pain on inspiration GI: Denies: abdominal pain, nausea, vomiting, diarrhea or constipation : Reports: dysuria (burning); Denies: flank pain or difficulty urinating Musc: Denies: back pain, extremity pain or extremity swelling Neuro: Denies: headache(s), difficulty walking or confusion Medications/Allergies Home Medications Medication Instructions Recorded Confirmed Last Taken Type clopidogrel 75 mg tablet 75 mg PO DAILY@12 12/03/19 11/26/22 Unknown History doxazosin 2 mg tablet (Cardura) 1 mg PO BEDTIME 12/03/19 11/26/22 Unknown History omeprazole 20 mg capsule,delayed 20 mg PO BEDTIME 12/03/19 11/26/22 Unknown History release simvastatin 20 mg tablet 20 mg PO BEDTIME 12/03/19 11/26/22 Unknown History fluticasone propionate 50 2 spray intranasal DAILY PRN 06/24/20 11/26/22 Unknown History mcg/actuation nasal Allergy Symptoms spray,suspension aspirin 81 mg tablet,delayed 81 mg PO QAM 12/26/20 11/26/22 Unknown History release (Adult Low Dose Aspirin) gabapentin 300 mg capsule 300 mg PO DAILY PRN pain 05/14/22 11/26/22 Unknown History levothyroxine 50 mcg tablet 50 mcg PO QAM 05/14/22 11/26/22 Unknown History acetaminophen 500 mg tablet 500 mg PO Q6H PRN Pain 11/26/22 11/26/22 Unknown History pioomkahuguu-ysdyztly-gihxbd tablet 1 tab PO QAM 11/26/22 11/26/22 Unknown History tamsulosin 0.4 mg capsule (Flomax) 0.4 mg PO BEDTIME 11/26/22 11/26/22 Unknown History valsartan 160 mg tablet 160 mg PO BID 11/26/22 11/26/22 Unknown History Allergies Allergy/AdvReac Type Severity Reaction Status Date / Time Penicillins AdvReac ALGY-Rash Verified 11/26/22 07:36 Current Medications Generic Name Dose Route Start Last Admin Trade Name Freq PRN Reason Stop Dose Admin Atorvastatin Calcium 80 mg 11/25/22 21:00 11/25/22 21:43 Atorvastatin 40 Mg Tablet PO 80 mg BEDTIME ELISHA Administration Meropenem 500 mg/ Sodium 50 mls @ 100 mls/hr 11/26/22 06:45 11/26/22 07:45 Chloride IV 100 mls/hr Q8H ELISHA Administration Protocol PFSH Acute PFSH: Medical History (Updated 11/26/22 @ 11:18 by Trisha Middleton MD) BPH NOS w ur obs/LUTS Chronic kidney disease History of anemia of chronic disease History of cellulitis Hx of congestive heart failure Hx of diverticulitis of colon Hx of gastroesophageal reflux (GERD) Hx of hyperlipidemia Hx of osteoarthritis Surgical History History of knee replacement History of tonsillectomy History of total hip replacement bilateral Hx of cataract extraction BILATERAL Hx of cholecystectomy Family History Father , in his 80's Diabetes Mother , in her 80's Stroke Other CAD (coronary artery disease) Cancer Hypertension Social History Smoking and tobacco status: never smoked Alcohol intake: former Adopted: No Caregiver/support person: No Lives independently: No Household members: spouse Marital status: Current occupational status: retired Current gender identity: Male Vitals/I&O/Wt Last Vital Signs Temp 98.2 F 11/26/22 07:47 Pulse 84 11/26/22 07:47 Resp 17 11/26/22 07:47 BP 136/56 11/26/22 07:47 Pulse Ox 94 11/26/22 07:47 O2 Del Method 11/26/22 07:47 11/25/22 11/26/22 11/26/22 22:59 06:59 14:59 Intake Total 50 / 50 0 / 0 Output Total 50 / 50 100 / 150 200 / 200 Balance -50 / -50 -50 / -100 -200 / -200 Weight last 48 hrs Weight 147 lb 14.4 oz Weight 150 lb 12.8 oz Weight 144 lb Physical Exam Const: COMMON NORMALS: no acute distress, patient oriented x3 and alert GENERAL APPEARANCE: cooperative, comfortable, well kempt and well hydrated HENMT: COMMON NORMALS: hearing grossly normal bilaterally, external ears normal and moist oral mucous membranes FACE & SINUS: normal facial exam EXTERNAL EAR: Yes external ears normal Eye: COMMON NORMALS: EOMs intact bilaterally and no scleral icterus GENERAL EYE: appearance normal, both eyes and all related structures ALIGNMENT: Yes alignment normal Neck/C-Spine: COMMON NORMALS: supple and no JVD GENERAL: Yes normal visual inspection CAROTIDS: Yes normal carotid upstroke Chest: COMMONS NORMALS: normal inspection of the chest and normal palpation of entire chest wall CHEST: Yes Symmetrical chest wall rise and No tenderness Resp: COMMON NORMALS: clear to auscultation bilaterally AUSCULTATION: clear to auscultation bilaterally, no crackles, no rales, no rhonchi and no wheezes Cardio: COMMON NORMALS: no JVD, regular rate, regular rhythm, S1 normal heart sound present and S2 normal heart sound present PALPATION: normal PMI RATE: regular rate RHYTHM: regular rhythm HEART SOUNDS: S1 normal heart sound present, S2 normal heart sound present, no gallops and no murmurs BRUITS: no carotid bruits GI: COMMON NORMALS: Soft to palpation AUSCULTATION: Yes normoactive bowel s ounds PALPATION: Yes Soft to palpation, Yes Tenderness to palpation present (GI) (lower abdomen), No Guarding due to palpation present (GI) and No Rigid due to palpation Extremity: GENERAL: No cyanosis, Yes edema (trace) and No pallor Neuro: COMMON NORMALS: patient oriented x3 and no focal motor deficits SENSORIUM/ORIENTATION: Yes alert Psych: COMMON NORMALS: Normal thought process present and speech normal APPEARANCE: Yes well kempt SPEECH: Yes normal speech MOOD & AFFECT: Yes euthymic mood THOUGHT PROCESS: Normal thought process present THOUGHT CONTENT: Yes Normal thought content present Data 11/26/22 04:30 11/26/22 03:42 Micro: Microbiology 11/26/22 06:45 Blood Culture - Preliminary Blood SPECIMEN COLLECTED 11/26/22 06:43 Blood Culture - Preliminary Blood SPECIMEN COLLECTED A&P Assessment and plan (1) Non-ST elevation MT (NSTEMI): Initial EKG with sinus tachycardia with first degree AV block. EKG showed sinus rhythm with Mobitz type 1 AV block and intermittent 2:[address] No ischemic [address]-T wave changes. -Given no recurrent chest pain and no RWMA on echo along with UTI with worsening leucocytosis, will monitor how he does for now. -continue to treat medically with ASA, statin low dose metoprolol. -Decision for stress test/ LHC based on clinical progression. (2) Coronary artery disease: remote stent in 2008 (3) Hypertension: Plan UTI Leuckcytosis Thrombocytopenia Hypothyroidism Patient seen today via Telehealth by agreement and consent of patient. Telehealth technology used during the visit include video and audio. Exam was conducted with the help of bedside nurse. Time spent in encounter 40 minutes with >50% time spent face to face. Coding Level of Care Code 21005 Diagnoses Non-ST elevation MT (NSTEMI) I21.4 Coronary artery disease I25.10 Hypertension I10
[2022-11-26] MEDS: doxazosin 1 mg Tablet PO (10:06)
[2022-11-26] MEDS: fluticasone nasal spray 16gm Btl 2 SPRAY INTRANASAL (10:06)
[2022-11-26] MEDS: aspirin 81 mg EC Tablet PO (10:07)
[2022-11-26] MEDS: potassium chloride ER 20 mEq Tablet PO (10:07)
[2022-11-26] MEDS: pantoprazole DR 40 mg Tablet PO (10:07)
[2022-11-26] MEDS: levothyroxine 50 mcg Tablet PO (10:07)
[2022-11-26] MEDS: tamsulosin 0.4 mg Capsule PO (10:07)
--- NOTE | 2022-11-26 10:47 | PC.CHAP ---
Pastoral Care Encounter/Spiritual Assessment Type of Contact [] Declined fisher line visit [] Patient/Family/Request visit [] Outpatient visit [] Follow-up visit [] Physician referral [] Code/Alert [x] Routine visit [] Staff referral [] Actively dying [x] Patient sleeping [] Family support [] [] Out of room [] Palliative care [] [] Receiving care in room [] Pre-surgical visit [] Trauma [] Long length of stay [] ICU visit [] Other: Relational/Emotional Strength [] Patient feels connected with others/family/visitors/staff [] Distress [] Loneliness/isolation [] Abandonment Spirituality of Patient [] Person of Sabi [] Attends Spiritism of their Sabi [] Believes in Prayer [] Reads Bible or Worship materials [] There are Spiritual issues to be addressed Contract Runner Interventions [] Prayer [] Active listening [] Non-anxious presence [] Spiritual/emotional support [] Crisis/trauma care [] Spiritual counseling [] Bereavement support [] Provided bereavement packet [] Provided Bible/devotional materials [] Provided toy/stuffed animal, coloring book to patient or family member [] Provided Communion [] Anointing/[place] [] Salvation [] Completed spiritual assessment [] Other: Impact on Illness or Injury [] Angry [] Fearful [] Anxious [] Often cries [] Exhaustion [] Unable to work [] Unable to attend muslim [] Unable to walk/stand [] Unable to read [] Unable to drive [] Unable to eat/drink [] Unable to sleep [] Unable to be with family [] Patient intubated [] Other: Summary Time spent with patient
[2022-11-26] MEDS: metoprolol succinate ER (24 HR) 25 mg Tablet 12.5 MG PO (14:31)
[2022-11-26] MEDS: atorvastatin 40 mg Tablet 80 MG PO (20:18)
[2022-11-26] MEDS: enoxaparin 80 mg/0.8 mL Syringe 70 MG SUBCUT (20:18)
[2022-11-26 23:41] LABS: Adenovirus Not Detected (NOT DETECT); Chlamydia Pneumoniae Not Detected (NOT DETECT); Coronavirus 229E,HKU1,NL63,OC4 Not Detected (NOT DETECT); Human Metapneumovirus Not Detected (NOT DETECT); Human Rhinovirus/Enterovirus Not Detected (NOT DETECT); Influenza A Not Detected (NOT DETECT); Influenza A H1 Not Detected (NOT DETECT); Influenza A H1-2009 Not Detected (NOT DETECT); Influenza A H3 Not Detected (NOT DETECT); Influenza B Not Detected (NOT DETECT); Mycoplasma Pneumoniae Not Detected (NOT DETECT); Parainfluenza Virus Type 1 Not Detected (NOT DETECT); Parainfluenza Virus Type 2 Not Detected (NOT DETECT); Parainfluenza Virus Type 3 Not Detected (NOT DETECT); Parainfluenza Virus Type 4 Not Detected (NOT DETECT); Respiratory Syncytial Virus A Not Detected (NOT DETECT); Respiratory Syncytial Virus B Not Detected (NOT DETECT); SARS-COV-2 Not Detected (NOT DETECT)
[2022-11-27] VITALS (11 sets, daily range): BP systolic 132–178; BP diastolic 53–70; PULSE 68–85; RESP 20–32; TEMP 36.3–37.7; O2SAT 93–97
[2022-11-27 03:27] LABS: Basophils # 0.1 10^3/uL (0.0-0.1); Basophils % 0.3 %; Eosinophils # 0.1 10^3/uL (0.0-0.8); Eosinophils % 0.2 %; Hematocrit 31.5 % (42.0-52.0); Hemoglobin 10.4 g/dL (11.7-16.6); Lymphocytes # 0.9 10^3/uL (0.8-4.8); Lymphocytes % 2.2 %; Mean Corpuscular Hemoglobin 32.2 pg (28.0-34.0); Mean Corpuscular Volume 97.5 fl (80-94); Mean Platelet Volume 13.1 fL (7.4-10.4); Monocytes # 2.8 10^3/uL (0.2-0.9); Monocytes % 6.9 %; Neutrophils # 35.01 10^3/uL (1.8-7.7); Neutrophils % 85.6 %; Nucleated Red Blood Cells % 0 %; Platelet Count 93 10^3/cmm (130-400); Red Blood Count 3.23 10^6/uL (4.1-5.3); Red Cell Distribution Width 15.1 % (12.1-15.1)
[2022-11-27 03:50] LABS: Alanine Aminotransferase 19 U/L (0-41); Albumin Level 3.2 g/dL (3.5-5.2); Alkaline Phosphatase 31 U/L (40-130); Anion Gap 12.5 (5-19); Aspartate Amino Transferase 23 U/L (0-40); Blood Urea Nitrogen 26 mg/dL (8-23); Calcium 8.4 mg/dL (8.5-10.5); Carbon Dioxide 21 mmol/L (22-29); Chloride 104 mmol/L (98-107); Globulin 2.4 g/dL (1.3-4.6); Glucose 113 mg/dL (65-115); Osmolality Calculated 284 mOsm/kg (285-295); Potassium 3.5 mmol/L (3.5-5.1); Sodium 134 mmol/L (136-145); Total Protein 5.6 g/dL (6.6-8.7)
[2022-11-27] MEDS: sodium chloride 0.9% 1,000 ML 30 ML IV (05:20)
[2022-11-27] MEDS: meropenem 500 MG in sodium chloride 0.9% (plus) 50 ML 100 MG IV ×2 (05:21→14:33)
[2022-11-27] MEDS: enoxaparin 80 mg/0.8 mL Syringe 70 MG SUBCUT (05:22)
[2022-11-27 05:28] LABS: Slide Review Slide Review Perform
[2022-11-27 05:29] LABS: White Blood Count 40.9 10^3/uL (4.0-10.0)
[2022-11-27] MEDS: vancomycin 1,000 MG in sodium chloride 0.9% 250 ML 250 MG IV (09:13)
[2022-11-27] MEDS: metoprolol succinate ER (24 HR) 25 mg Tablet 12.5 MG PO (09:14)
[2022-11-27] MEDS: levothyroxine 50 mcg Tablet PO (09:14)
[2022-11-27] MEDS: potassium chloride ER 20 mEq Tablet PO (09:14)
[2022-11-27] MEDS: aspirin 81 mg EC Tablet PO (09:14)
[2022-11-27] MEDS: doxazosin 1 mg Tablet PO (09:14)
[2022-11-27] MEDS: losartan 50 mg Tablet PO ×2 (09:14→17:03)
[2022-11-27] MEDS: fluticasone nasal spray 16gm Btl 2 SPRAY INTRANASAL (09:15)
[2022-11-27] MEDS: tamsulosin 0.4 mg Capsule PO ×2 (09:15→23:42)
[2022-11-27] MEDS: pantoprazole DR 40 mg Tablet PO (09:15)
--- NOTE | 2022-11-27 10:06 | P.PN_ITS ---
Subjective Subjective: Cardiology coverage This patient is admitted with features of a non-ST elevation myocardial infarc tion. EKG reveals first-degree AV block with intermittent second-degree type I AV block. He also was found to have markedly elevated white cell count with a possible UTI. However he is remaining afebrile. Most likely he may have some formal blood dyscrasia. This needs to be further evaluated. He has been remaining chest pain-free since admission. The EKG did not do any significant ischemic changes. The echocardiogram also was unremarkable with no significant wall motion normalities. His BUN and creatinine levels are going up Medications: Medication Review Details: Current Medications Acetaminophen (Acetaminophen 325 Mg Tablet) 650 mg PO Q6H PRN PRN Reason: Mild/Mod Pain Or Temp >/= 101 Aspirin (Aspirin 81 Mg Ec Tablet) 81 mg PO DAILY [facility] Last Admin: 11/27/22 09:14 Dose: 81 mg Atorvastatin Calcium (Atorvastatin 40 Mg Tablet) 80 mg PO BEDTIME [facility] Last Admin: 11/26/22 20:18 Dose: 80 mg Bisacodyl (Bisacodyl 5 Mg Tablet) 10 mg PO DAILY PRN; Protocol PRN Reason: Constipation (see protocol) Doxazosin Mesylate (Doxazosin 1 Mg Tablet) 1 mg PO DAILY [facility] Last Admin: 11/27/22 09:14 Dose: 1 mg Enoxaparin Sodium (Enoxaparin 80 Mg/0.8 Ml Syringe) 70 mg SUBCUT Q12H [facility] Last Admin: 11/27/22 05:22 Dose: 70 mg Fluticasone Propionate (Fluticasone Nasal [place] 16gm Btl) 2 spray INTRANASAL DAILY [facility] Last Admin: 11/27/22 09:15 Dose: 2 spray Gabapentin (Gabapentin 300 Mg Capsule) 300 mg PO DAILY PRN PRN Reason: pain Sodium Chloride (Sodium Chloride 0.9%) 1,000 mls @ 30 mls/hr IV .Q24H [facility] Last Admin: 11/27/22 05:20 Dose: 30 mls/hr Meropenem 500 mg/ Sodium (Chloride) 50 mls @ 100 mls/hr IV Q8H [facility]; Protocol Last Infusion: 11/27/22 06:07 Dose: Infused Vancomycin HCl 1,000 mg/ (Sodium Chloride) 250 mls @ 250 mls/hr IV Q24H [facility]; Protocol Last Admin: 11/27/22 09:13 Dose: 250 mls/hr Levothyroxine Sodium (Levothyroxine 50 Mcg Tablet) 50 mcg PO DAILY [facility] Last Admin: 11/27/22 09:14 Dose: 50 mcg Losartan Potassium (Losartan 50 Mg Tablet) 50 mg PO BID [facility] Last Admin: 11/27/22 09:14 Dose: 50 mg Metoprolol Succinate (Metoprolol Succinate Er (24 Hr) 25 Mg Tablet) 12.5 mg PO DAILY [facility] Last Admin: 11/27/22 09:14 Dose: 12.5 mg Multivitamins/Minerals (Multivitamin W/Minerals Tablet) 1 tab PO DAILY [facility] Last Admin: 11/27/22 09:14 Dose: 1 tab Nitroglycerin (Nitroglycerin 0.4 Mg Sublingual Tablet) 0.4 mg SUBLINGUAL Q5M PRN PRN Reason: CHEST PAIN Ondansetron HCl (Ondansetron 2 Mg/Ml Sdv 2 Ml) 4 mg IVP Q8H PRN PRN Reason: vomiting, or N/V if npo Pantoprazole Sodium (Pantoprazole Dr 40 Mg Tablet) 40 mg PO DAILY [facility] Last Admin: 11/27/22 09:15 Dose: 40 mg Potassium Chloride (Potassium Chloride Er 20 Meq Tablet) 20 meq PO DAILY [facility] Last Admin: 11/27/22 09:14 Dose: 20 meq Tamsulosin HCl (Tamsulosin 0.4 Mg Capsule) 0.4 mg PO DAILY [facility] Last Admin: 11/27/22 09:15 Dose: 0.4 mg Vitals/I&O/Wt Last Vital Signs Temp 97.4 F L 11/27/22 08:05 Pulse 74 11/27/22 08:05 Resp 20 H 11/27/22 08:05 BP 166/53 11/27/22 09:14 Pulse Ox 94 11/27/22 08:05 O2 Del Method 11/27/22 08:05 11/26/22 11/27/22 11/27/22 22:59 06:59 14:59 Intake Total 1190 / 1720 1370 / 3090 100 / 100 Output Total 250 / 450 950 / 1400 Balance 940 / 1270 420 / 1690 100 / 100 Weight last 48 hrs Weight 141 lb Weight 147 lb 14.4 oz Weight 150 lb 12.8 oz Weight 144 lb Physical Exam Narrative: GENERAL: The patient is alert and oriented times three. Not in any acute distress. HEENT: No significant pallor, icterus or lymphadenopathy.Oral cavity: There are no mucous membrane lesions. NECK: Trachea appears to be central. No masses noted. No JVD or thyromegaly appreciated. RESPIRATORY: Chest is symmetrical. No intercostals muscle retraction or any accessory muscle activation. There is no chest wall tenderness. Breath sounds are heard bilaterally. No rales or rhonchi heard. No evidence of any consolidation. BREASTS: Deferred. HEART: The heart sounds are normal. No S3 or S4. No significant murmurs. No pericardial rub ABDOMEN: No vessel pulsations or distention. No tenderness. No organomegaly appreciated. Bowel sounds are normally heard. : Deferred. RECTAL: Deferred. LYMPHATIC: No lymphadenopathy noted in the neck. EXTREMITIES: Trace edema with no cyanosis. No clubbing. MUSCULOSKELETAL: No acute joint deformities or swelling SKIN: There are no significant rashes or ecchymosis NEUROPSYCHIATRIC: The patient is alert and oriented x3. Appears to be in a good mood. No tremors or rigidity noted. Data 11/27/22 02:45 11/27/22 02:45 Other Labs: Laboratory Last Values WBC 40.9 10^3/uL (4.0-10.0) H* 11/27/22 02:45 RBC 3.23 10^6/uL (4.1-5.3) L 11/27/22 02:45 Hgb 10.4 g/dL (11.7-16.6) L 11/27/22 02:45 Hct 31.5 % (42.0-52.0) L 11/27/22 02:45 MCV 97.5 fl (80-94) H 11/27/22 02:45 MCH 32.2 pg (28.0-34.0) 11/27/22 02:45 MCHC 33.0 g/dL (30.0-36.0) 11/27/22 02:45 RDW 15.1 % (12.1-15.1) 11/27/22 02:45 Plt Count 93 10^3/cmm (130-400) L 11/27/22 02:45 MPV 13.1 fL (7.4-10.4) H 11/27/22 02:45 Neut % (Auto) 85.6 % 11/27/22 02:45 Lymph % (Auto) 2.2 % 11/27/22 02:45 Orange % (Auto) 6.9 % 11/27/22 02:45 Eos % (Auto) 0.2 % 11/27/22 02:45 Baso % (Auto) 0.3 % 11/27/22 02:45 Neut # (Auto) 35.01 10^3/uL (1.8-7.7) H 11/27/22 02:45 Lymph # (Auto) 0.9 10^3/uL (0.8-4.8) 11/27/22 02:45 Orange # (Auto) 2.8 10^3/uL (0.2-0.9) H 11/27/22 02:45 Eos # (Auto) 0.1 10^3/uL (0.0-0.8) 11/27/22 02:45 Baso # (Auto) 0.1 10^3/uL (0.0-0.1) 11/27/22 02:45 Nucleated RBC % (auto) 0 % 11/27/22 02:45 Total Counted 100 (0-100) 11/26/22 04:30 Atypical Lymphs % 0.0 % (0-5) 11/26/22 04:30 Absolute Neutrophils 39.7 10^3/cmm (1.4-6.5) H 11/26/22 04:30 Segmented Neutrophils 85 % 11/26/22 04:30 Abs Segm Neuts (Man) 37.5 10/cmm (1.6-7.1) H 11/26/22 04:30 Band Neutrophils 5.0 % 11/26/22 04:30 Abs Band Neuts (Man) 2.2 10^3/cmm (0.0-1.2) H 11/26/22 04:30 Absolute Lymphocytes 0.4 10^3/cmm (1.2-3.4) L 11/26/22 04:30 Lymphocytes (Manual) 1 % 11/26/22 04:30 Monocytes (Manual) 9.0 % 11/26/22 04:30 Absolute Monocytes 4.0 10^3/cmm (0.1-0.6) H 11/26/22 04:30 Eosinophils (Manual) 0 % 11/26/22 04:30 Absolute Eosinophils 0.0 10^3/cmm (0.0-0.7) 11/26/22 04:30 Basophils (Manual) 0.0 % 11/26/22 04:30 Absolute Basophils 0.0 10^3/cmm (0.0-0.2) 11/26/22 04:30 Nucleated RBCs # 0.0 /100WBC 11/27/22 02:45 Platelet Estimate Decreased (Normal) 11/26/22 04:30 Rouleaux 1+ H 11/26/22 04:30 Sodium 134 mmol/L (136-145) L 11/27/22 02:45 Potassium 3.5 mmol/L (3.5-5.1) 11/27/22 02:45 Chloride 104 mmol/L (98-107) 11/27/22 02:45 Carbon Dioxide 21 mmol/L (22-29) L 11/27/22 02:45 Anion Gap 12.5 (5-19) 11/27/22 02:45 BUN 26 mg/dL (8-23) H 11/27/22 02:45 Creatinine 1.4 mg/dL (0.7-1.2) H 11/27/22 02:45 GFR Calculation Not Reportable 11/27/22 02:45 Glucose 113 mg/dL (65-115) 11/27/22 02:45 Calculated Osmolality 284 mOsm/kg (285-295) L 11/27/22 02:45 Lactic Acid 1.6 mmol/L (0.5-2.2) 11/26/22 06:45 Calcium 8.4 mg/dL (8.5-10.5) L 11/27/22 02:45 Magnesium 1.8 mg/dL (1.7-2.3) 11/26/22 03:42 Total Bilirubin 1.0 mg/dL (0.15-1.2) 11/27/22 02:45 AST 23 U/L (0-40) 11/27/22 02:45 ALT 19 U/L (0-41) 11/27/22 02:45 Alkaline Phosphatase 31 U/L (40-130) L 11/27/22 02:45 Troponin T Baseline 41 ng/L (0-15) H 11/25/22 17:45 Troponin T 120 Minute 58.37 ng/L (0-15) H 11/25/22 19:30 Delta Troponin T 17.37 ABS# (0-10) H* 11/25/22 19:30 Troponin T Hi Sens 6Hr 80.83 ng/L (0-15) H 11/25/22 23:40 Troponin T Hi Sens 6Hr Delta 39.83 ng/L (0-12) H* 11/25/22 23:40 NT-Pro-B Natriuret Pep 2841 pg/mL (0-450) H 11/26/22 03:42 Total Protein 5.6 g/dL (6.6-8.7) L 11/27/22 02:45 Albumin 3.2 g/dL (3.5-5.2) L 11/27/22 02:45 Globulin 2.4 g/dL (1.3-4.6) 11/27/22 02:45 Procalcitonin 0.78 ng/mL (0-0.5) H 11/26/22 03:42 TSH 1.13 uIU/mL (0.27-4.20) 11/26/22 03:42 Urine Color Yellow (Yellow) 11/25/22 21:50 Urine Appearance Clear (CLEAR) 11/25/22 21:50 Urine pH 6 (5-7) 11/25/22 21:50 Ur Specific [place] 1.015 (1.005-1.030) 11/25/22 21:50 Urine Protein Neg (Negative) 11/25/22 21:50 Urine Glucose (UA) Norm (Normal) 11/25/22 21:50 Urine Ketones Negative (Negative) 11/25/22 21:50 Urine Blood 3+ (Negative) H 11/25/22 21:50 Urine Nitrate Positive (Negative) H 11/25/22 21:50 Urine Bilirubin Neg (Negative) 11/25/22 21:50 Urine Urobilinogen Norm mg/dL (Negative) 11/25/22 21:50 Ur Leukocyte Esterase 2+ (Negative) H 11/25/22 21:50 Urine RBC 80-100 /hpf (0-2) H 11/25/22 21:50 Urine WBC 80-100 /hpf (0-5) H 11/25/22 21:50 Ur Squamous Epith Cells 0-4 /hpf (0-5) H 11/25/22 21:50 Amorphous Sediment Not Reportable 11/25/22 21:50 Urine Bacteria 2+ /hpf (NONE) H 11/25/22 21:50 Nasal Influ A H1 2009 PCR Not detected (NOT DETECT) 11/26/22 20:55 Adenovirus (PCR) Not detected (NOT DETECT) 11/26/22 20:55 C. pneumoniae DNA (PCR) Not detected (NOT DETECT) 11/26/22 20:55 Coronavirus 229E (PCR) Not detected (NOT DETECT) 11/26/22 20:55 Human Metapneumovir PCR Not detected (NOT DETECT) 11/26/22 20:55 Influenza A (H1) PCR Not detected (NOT DETECT) 11/26/22 20:55 Influenza A (H3) PCR Not detected (NOT DETECT) 11/26/22 20:55 Influenza Type A (PCR) Not detected (NOT DETECT) 11/26/22 20:55 Influenza Type B (PCR) Not detected (NOT DETECT) 11/26/22 20:55 M. pneumoniae (PCR) Not detected (NOT DETECT) 11/26/22 20:55 Parainfluenza 1 (PCR) Not detected (NOT DETECT) 11/26/22 20:55 Parainfluenza 2 (PCR) Not detected (NOT DETECT) 11/26/22 20:55 Parainfluenza 3 (PCR) Not detected (NOT DETECT) 11/26/22 20:55 Parainfluenza 4 (PCR) Not detected (NOT DETECT) 11/26/22 20:55 RSV Type A (PCR) Not detected (NOT DETECT) 11/26/22 20:55 RSV Type B (PCR) Not detected (NOT DETECT) 11/26/22 20:55 Entero/Rhino (PCR) Not detected (NOT DETECT) 11/26/22 20:55 SARS-CoV-2 (PCR) Not detected (NOT DETECT) 11/26/22 20:55 Micro: Microbiology 11/26/22 06:45 Blood Culture - Preliminary Blood NEGATIVE TO DATE 11/26/22 06:43 Blood Culture - Preliminary Blood NEGATIVE TO DATE A&P Assessment and plan (1) Non-ST elevation [place] (NSTEMI): Patient is on subcu Lovenox, beta-greg statin. Also has thrombocytopenia. May continue on the current medication for the time being. (2) Coronary artery disease: Patient has a questionable history of PCI? In 2009. Details are not available. A Myocardial perfusion imaging would be appropriate to further evaluate the coronary status and decide on further management. This was discussed with the patient in detail which is understood well and consented to proceed (3) Hypertension: The blood pressure is of stage II. Will optimize antihypertensive medications. (4) Neutrophilic leukocytosis: The etiology is not clear. Patient requires further work-up. (5) Acute kidney injury (nontraumatic): Etiology is unclear. Plan The other problems are possible UTI Hypothyroidism Thrombocytopenia Dyslipidemia We may go ahead and do schedule the patient for a Lexiscan/sestamibi/sestamibi stress test. Based on the results, further recommendations will be made. Attestations Medical Necessity Statement*: Deferred to the primary Coding Level of Care Code 14589 Diagnoses Non-ST elevation FL (NSTEMI) I21.4 Coronary artery disease I25.10 Hypertension I10 Neutrophilic leukocytosis D72.9 Acute kidney injury (nontraumatic) N17.9
--- NOTE | 2022-11-27 10:51 | ECG_ITS ---
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 Measurements Intervals Shelley Rate: 67 P: 70 KS: 242 QRS: 28 QRSD: 84 T: 41 QT: 394 QTc: 417 Interpretive Statements SINUS RHYTHM WITH FIRST DEGREE AV BLOCK Compared to ECG 11/25/2022 19:29:02 First degree AV block now present Electronically Signed On 11-27-2022 19:38:[address] JUSTICE by Noe Salazar M.D. [email or web address] [email or web address] Surin Groupst. anthony's hospitalBesstech/store/OM/[id number]
--- NOTE | 2022-11-27 12:59 | P.PN_ITS ---
Subjective Subjective: chest pain free no acute events overnight Vitals/I&O/Wt Last Vital Signs Temp 98.1 F 11/27/22 11:22 Pulse 78 11/27/22 11:22 Resp 27 H 11/27/22 11:22 BP 163/70 11/27/22 11:22 Pulse Ox 97 11/27/22 11:22 O2 Del Method 11/27/22 11:22 11/26/22 11/27/22 11/27/22 22:59 06:59 14:59 Intake Total 1190 / 1720 1370 / 3090 350 / 350 Output Total 250 / 450 950 / 1400 50 / 50 Balance 940 / 1270 420 / 1690 300 / 300 Weight last 48 hrs Weight 63.957 kg Weight 67.086 kg Weight 68.402 kg Weight 65.317 kg Physical Exam Narrative: General: Alert oriented x3, patient seen sitting up in bed nic earing comfortable HEENT: Normocephalic, atraumatic, EOMI, breathing normally Cardio: Regular rate rhythm, normal S1-S2, Respiratory: Good bilateral air entry, no wheezes no rhonchi appreciated GI: Abdomen soft, nontender, nondistended, bowel sounds + Behavior: Appropriate and cooperative Extremities: no edema Data 11/27/22 02:45 11/27/22 02:45 Micro: Microbiology 11/25/22 21:50 Urine Culture - Preliminary Urine,Clean Catch Gram Negative Rods 11/26/22 06:45 Blood Culture - Preliminary Blood NEGATIVE TO DATE 11/26/22 06:43 Blood Culture - Preliminary Blood NEGATIVE TO DATE A&P Assessment and plan (1) Non-ST elevation CT (NSTEMI): (2) Hypertension: (3) Coronary artery disease: (4) Thrombocytopenia: Plan MH of HTN , hypothyroidism, CAD S/P PCI 2008 came in today with c/o chest tightness which started today afternoon lasted for about 5 mins, at that time patient states that he was also feeling cold and was having chills, he again experienced another episode some time later that too lasted transiently, describe the tightness as substernal, non radiating more like pressure, denied any palpitation, diaphoresis, nausea, vomiting, fever,cough, sob. for the last1 week or so he is also experincing, increased urinary frequency as well as burning while passing urine. Assessment : NSTEMI: EKG: Has shown: ST with 1st degree A.V Block , xray chest : No acute findings Serial EKG Monitoring Troponin Trend: 41-58 2DCHO : Have received Therapeutic Lovenox Continue ACS Protocol ( Aspirin, statin, beta,greg, ) Telemetry monitoring Cardiology on board . plan for stress test tuesday H/O CAD S/P PCI: On Aspirin, statin, beta,greg,plavix H/O hypothyroidism: Am TSH Continue Levothyroxine H/O HTN : On Valsartan, doxazosin as well as metoprolol Code Status :Full code DVT PPX: Not needed on Therapeutic Lovenox. Attestations Medical Necessity Statement*: stress test tuesday Diagnoses Non-ST elevation CT (NSTEMI) I21.4 Hypertension I10 Coronary artery disease I25.10 Thrombocytopenia D69.6
[2022-11-27] MEDS: enoxaparin 100 mg/mL Syringe 70 MG SUBCUT (18:04)
[2022-11-27] MEDS: atorvastatin 40 mg Tablet 80 MG PO (21:48)
--- NOTE | 2022-11-27 23:24 | PC.NURSE ---
Patient only voiding 50ml at a time. After voiding 50ml post void residual checked, bladder scan showed 236ml. Spoke with , ordered to increase flomax to BID and recheck residual in 4hours.
[2022-11-28] VITALS (11 sets, daily range): BP systolic 151–188; BP diastolic 63–83; PULSE 52–97; RESP 18–28; TEMP 36.4–36.9; O2SAT 95–98
[2022-11-28] MEDS: meropenem 500 MG in sodium chloride 0.9% (plus) 50 ML 100 MG IV ×2 (02:01→15:32)
--- NOTE | 2022-11-28 02:40 | PC.NURSE ---
Patient got up to BR, used urinal and voided 50ml. Bladder scan revealed 213ml in bladder. Will continue to monitor.
[2022-11-28 02:58] LABS: Basophils % 0.1 %; Eosinophils # 0.1 10^3/uL (0.0-0.8); Eosinophils % 0.3 %; Hematocrit 33.8 % (42.0-52.0); Lymphocytes # 0.8 10^3/uL (0.8-4.8); Lymphocytes % 4.4 %; Mean Corpuscular HGB Conc 32.5 g/dL (30.0-36.0); Mean Corpuscular Hemoglobin 31.5 pg (28.0-34.0); Mean Corpuscular Volume 96.8 fl (80-94); Mean Platelet Volume 12.7 fL (7.4-10.4); Monocytes # 0.9 10^3/uL (0.2-0.9); Monocytes % 4.9 %; Neutrophils # 16.75 10^3/uL (1.8-7.7); Neutrophils % 88.5 %; Nucleated Red Blood Cells % 0 %; Platelet Count 100 10^3/cmm (130-400); Red Blood Count 3.49 10^6/uL (4.1-5.3); White Blood Count 18.9 10^3/uL (4.0-10.0)
[2022-11-28 03:19] LABS: Alanine Aminotransferase 19 U/L (0-41); Albumin Level 3.3 g/dL (3.5-5.2); Alkaline Phosphatase 35 U/L (40-130); Anion Gap 13.6 (5-19); Aspartate Amino Transferase 26 U/L (0-40); Blood Urea Nitrogen 26 mg/dL (8-23); Calcium 8.7 mg/dL (8.5-10.5); Carbon Dioxide 21 mmol/L (22-29); Chloride 106 mmol/L (98-107); Globulin 2.8 g/dL (1.3-4.6); Glucose 115 mg/dL (65-115); Osmolality Calculated 290 mOsm/kg (285-295); Potassium 3.6 mmol/L (3.5-5.1); Sodium 137 mmol/L (136-145); Total Bilirubin 0.6 mg/dL (0.15-1.2); Total Protein 6.1 g/dL (6.6-8.7)
[2022-11-28] MEDS: sodium chloride 0.9% 1,000 ML 30 ML IV (06:01)
[2022-11-28] MEDS: enoxaparin 100 mg/mL Syringe 70 MG SUBCUT ×2 (06:01→19:45)
[2022-11-28] MEDS: vancomycin 1,000 MG in sodium chloride 0.9% 250 ML 250 MG IV (08:30)
[2022-11-28] MEDS: potassium chloride ER 20 mEq Tablet PO (08:32)
[2022-11-28] MEDS: pantoprazole DR 40 mg Tablet PO (08:32)
[2022-11-28] MEDS: metoprolol succinate ER (24 HR) 25 mg Tablet 12.5 MG PO (08:32)
[2022-11-28] MEDS: levothyroxine 50 mcg Tablet PO (08:32)
[2022-11-28] MEDS: doxazosin 1 mg Tablet PO (08:32)
[2022-11-28] MEDS: losartan 50 mg Tablet PO ×2 (08:32→22:23)
[2022-11-28] MEDS: tamsulosin 0.4 mg Capsule PO ×2 (08:33→17:26)
[2022-11-28] MEDS: fluticasone nasal spray 16gm Btl 2 SPRAY INTRANASAL (08:35)
[2022-11-28] MEDS: aspirin 81 mg EC Tablet PO (08:35)
--- NOTE | 2022-11-28 09:15 | P.PN_ITS ---
Subjective Subjective: WBC count down to 18.9 Hb 11.0 Cr 1.3 RN reported patient retaining urine Vitals/I&O/Wt Last Vital Signs Temp 97.6 F 11/28/22 08:00 Pulse 89 11/28/22 08:00 Resp 24 H 11/28/22 08:00 BP 180/63 11/28/22 08:32 Pulse Ox 97 11/28/22 08:00 O2 Del Method 11/28/22 08:00 11/27/22 11/28/22 11/28/22 22:59 06:59 14:59 Intake Total 150 / 736 1270.5 / 2006.5 Output Total 200 / 300 200 / 500 Balance -50 / 436 1070.5 / 1506.5 Weight last 48 hrs Weight 63.911 kg Weight 63.957 kg Physical Exam 2 Narrative: General: Alert oriented x3, patient seen sitting up in bed appearing comfortable HEENT: Normocephalic, atraumatic, EOMI, breathing normally Cardio: Regular rate rhythm, normal S1-S2, Respiratory: Good bilateral air entry, no wheezes no rhonchi appreciated GI: Abdomen soft, nontender, nondistended, bowel sounds + Behavior: Appropriate and cooperative Extremities: no edema Data 11/28/22 02:32 11/28/22 02:32 Micro: Microbiology 11/26/22 20:55 MRSA Culture - Final Nose 11/25/22 21:50 Urine Culture - Preliminary Urine,Clean Catch Gram Negative Rods 11/26/22 06:45 Blood Culture - Preliminary Blood NEGATIVE TO DATE 11/26/22 06:43 Blood Culture - Preliminary Blood NEGATIVE TO DATE A&P Assessment and plan (1) Non-ST elevation [place] (NSTEMI): (2) Hypertension: (3) Coronary artery disease: (4) Thrombocytopenia: Plan MH of HTN , hypothyroidism, CAD S/P PCI 2008 came in today with c/o chest tightness which started today afternoon lasted for about 5 mins, at that time patient states that he was also feeling cold and was having chills, he again experienced another episode some time later that too lasted transiently, describe the tightness as substernal, non radiating more like pressure, denied any palpitation, diaphoresis, nausea, vomiting, fever,cough, sob. for the last1 week or so he is also experincing, increased urinary frequency as well as burning while passing urine. Assessment : NSTEMI: EKG: Has shown: ST with 1st degree A.V Block , xray chest : No acute findings Serial EKG Monitoring Troponin Trend: 41-58 2DCHO : Have received Therapeutic Lovenox Continue ACS Protocol ( Aspirin, statin, beta,greg, ) Telemetry monitoring Cardiology on board . 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 sensitivity pending Will continue antiobiotics H/O CAD S/P PCI: On Aspirin, statin, beta,greg,plavix H/O hypothyroidism: Am TSH Continue Levothyroxine H/O HTN : On Valsartan, doxazosin as well as metoprolol Code Status :Full code DVT PPX: Not needed on Therapeutic Lovenox. Attestations Medical Necessity Statement*: stress test tuesday Diagnoses Non-ST elevation [place] (NSTEMI) I21.4 Hypertension I10 Coronary artery disease I25.10 Thrombocytopenia D69.6
--- NOTE | 2022-11-28 11:58 | PC.SOCIAL ---
IMM Update pg 2 of IMM updated and reviewed w/ patient. Copy provided and Copy dated, initialed and placed in chart.
--- NOTE | 2022-11-28 12:48 | ECG_ITS ---
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 Interpretive Statements NAME OF STUDY: LEXISCAN SESTAMIBI STRESS TEST INDICATION: Chest Pain, PROCEDURE: At the baseline, the EKG revealed features of sinus Wenckebach. Some nonspecific T wave changes. The baseline heart was 76 bpm with a blood pressue of 150/60 mm of Hg Lexiscan was infused over a period of 20 seconds. A total of 0.4 milligrams of Lexiscan was infused. The stress phase was continued for a total of 5 minutes. Heart rate at the end of the stress phase was 88 bpm with a blood pressure 149/55 mm of Hg. The EKG at the peak infusion revealed no significant changes. Sestamibi was injected 20 seconds after the Lexiscan infusion. Heart rate at the end of the recovery phase was 77 bpm with a blood pressure of 162/55 mm of Hg. CONCLUSION: 1. No significant EKG changes with the LexiScan infusion 2. No LexiScan induced chest pain or cardiac arrhythmia 3. Normal blood pressure and heart rate response 4. Sestamibi/sestamibi perfusion scan pending; see separate report. Electronically Signed On 12-11-2022 14:28:59 REFINERY SUPERINTENDENT by Noe Salazar M.D. [id number]
--- NOTE | 2022-11-28 14:55 | PC.NURSE ---
pt still have urinary frequency and urgency, 50 ml of urine output each time he voids. palpation on bladder is soft but pt stated he feels like to urinate when bladder is touched, bladder scan shows >[address] notified to insert rowe catheter. inserted rowe cath via aseptic technique. urine out in bag is 300 ml.
[2022-11-28] MEDS: amlodipine 10 mg Tablet PO (17:26)
[2022-11-28] MEDS: atorvastatin 40 mg Tablet 80 MG PO (21:10)
--- NOTE | 2022-11-28 21:51 | PM.PN ---
Subjective Subjective: The patient is feeling okay. He has no chest pain or palpitation. No shortness of breath. . Remaining afebrile. The blood pressure seems elevated. Medications: Medication Review Details: Current Medications Acetaminophen (Acetaminophen 325 Mg Tablet) 650 mg PO Q6H PRN PRN Reason: Mild/Mod Pain Or Temp >/= 101 Amlodipine Besylate (Amlodipine 10 Mg Tablet) 10 mg PO DAILY [facility] Last Admin: 11/28/22 17:26 Dose: 10 mg Aspirin (Aspirin 81 Mg Ec Tablet) 81 mg PO DAILY [facility] Last Admin: 11/28/22 08:35 Dose: 81 mg Atorvastatin Calcium (Atorvastatin 40 Mg Tablet) 80 mg PO BEDTIME [facility] Last Admin: 11/28/22 21:10 Dose: 80 mg Bisacodyl (Bisacodyl 5 Mg Tablet) 10 mg PO DAILY PRN; Protocol PRN Reason: Constipation (see protocol) Doxazosin Mesylate (Doxazosin 1 Mg Tablet) 1 mg PO DAILY [facility] Last Admin: 11/28/22 08:32 Dose: 1 mg Enoxaparin Sodium (Enoxaparin 100 Mg/Ml Syringe) 70 mg SUBCUT Q12H [facility] Last Admin: 11/28/22 19:45 Dose: 70 mg Fluticasone Propionate (Fluticasone Nasal [place] 16gm Btl) 2 spray INTRANASAL DAILY [facility] Last Admin: 11/28/22 08:35 Dose: 2 spray Gabapentin (Gabapentin 300 Mg Capsule) 300 mg PO DAILY PRN PRN Reason: pain Sodium Chloride (Sodium Chloride 0.9%) 1,000 mls @ 30 mls/hr IV .Q24H [facility] Last Admin: 11/28/22 06:01 Dose: 30 mls/hr Vancomycin HCl 1,000 mg/ (Sodium Chloride) 250 mls @ 250 mls/hr IV Q24H [facility]; Protocol Last Infusion: 11/28/22 09:55 Dose: Infused Meropenem 500 mg/ Sodium (Chloride) 50 mls @ 100 mls/hr IV Q12H [facility]; Protocol Last Infusion: 11/28/22 16:22 Dose: Infused Levothyroxine Sodium (Levothyroxine 50 Mcg Tablet) 50 mcg PO DAILY [facility] Last Admin: 11/28/22 08:32 Dose: 50 mcg Metoprolol Succinate (Metoprolol Succinate Er (24 Hr) 25 Mg Tablet) 12.5 mg PO DAILY [facility] Last Admin: 11/28/22 08:32 Dose: 12.5 mg Multivitamins/Minerals (Multivitamin W/Minerals Tablet) 1 tab PO DAILY [facility] Last Admin: 11/28/22 08:32 Dose: 1 tab Nitroglycerin (Nitroglycerin 0.4 Mg Sublingual Tablet) 0.4 mg SUBLINGUAL Q5M PRN PRN Reason: CHEST PAIN Ondansetron HCl (Ondansetron 2 Mg/Ml Sdv 2 Ml) 4 mg IVP Q8H PRN PRN Reason: vomiting, or N/V if npo Pantoprazole Sodium (Pantoprazole Dr 40 Mg Tablet) 40 mg PO DAILY [facility] Last Admin: 11/28/22 08:32 Dose: 40 mg Potassium Chloride (Potassium Chloride Er 20 Meq Tablet) 20 meq PO DAILY [facility] Last Admin: 11/28/22 08:32 Dose: 20 meq Tamsulosin HCl (Tamsulosin 0.4 Mg Capsule) 0.4 mg PO BID [facility] Last Admin: 11/28/22 17:26 Dose: 0.4 mg Vitals/I&O/Wt Last Vital Signs Temp 97.9 F 11/28/22 19:54 Pulse 70 11/28/22 19:54 Resp 25 H 11/28/22 19:54 BP 178/64 11/28/22 19:54 Pulse Ox 97 11/28/22 19:54 O2 Del Method 11/28/22 19:54 11/28/22 11/28/22 11/28/22 06:59 14:59 22:59 Intake Total 1270.5 / 2006.5 450 / 450 150 / 600 Output Total 200 / 500 500 / 500 Balance 1070.5 / 1506.5 -50 / -50 150 / 100 Weight last 48 hrs Weight 140 lb 14.4 oz Weight 141 lb Physical Exam Narrative: GENERAL: The patient is alert and oriented times three. Not in any acute distress. HEENT: No significant pallor, icterus or lymphadenopathy.Oral cavity: There are no mucous membrane lesions. NECK: Trachea appears to be central. No masses noted. No JVD or thyromegaly appreciated. RESPIRATORY: Chest is symmetrical. No intercostals muscle retraction or any accessory muscle activation. There is no chest wall tenderness. Breath sounds are heard bilaterally. No rales or rhonchi heard. No evidence of any consolidation. BREASTS: Deferred. HEART: The heart sounds are normal. No S3 or S4. No significant murmurs. No pericardial rub ABDOMEN: No vessel pulsations or distention. No tenderness. No organomegaly appreciated. Bowel sounds are normally heard. : Deferred. RECTAL: Deferred. LYMPHATIC: No lymphadenopathy noted in the neck. EXTREMITIES: Trace edema with no cyanosis. No clubbing. MUSCULOSKELETAL: No acute joint deformities or swelling SKIN: There are no significant rashes or ecchymosis NEUROPSYCHIATRIC: The patient is alert and oriented x3. Appears to be in a good mood. No tremors or rigidity noted. Urinary Catheter Management: Schaffer: Cath Placed During This Visit: yes Reason for Continuing Indwelling Catheter: Acute Urinary Retention or Obstruction Urinary Catheter Date of Insertion: 11/28/22 Urinary Catheter Time of Insertion: 14:30 Data 11/28/22 02:32 11/28/22 02:32 Micro: Microbiology 11/28/22 08:00 C.difficile Toxin B Gene (PCR) - Final Stool 11/25/22 21:50 Urine Culture - Final Urine,Clean Catch Escherichia coli A&P Assessment and plan (1) Non-ST elevation TN (NSTEMI): Patient is on subcu Lovenox, beta-greg statin. He has thrombocytopenia. May continue on the current medication for the time being. (2) Coronary artery disease: Patient has a questionable history of PCI? In 2008. Details are not available. A Myocardial perfusion imaging would be appropriate to further evaluate the coronary status and decide on further management. This was discussed with the patient in detail which is understood well and consented to proceed (3) Hypertension: The blood pressure is of stage II. Will optimize antihypertensive medications. We will start him on losartan 50 mg p.o. now and daily (4) Neutrophilic leukocytosis: The etiology is not clear. Patient requires further work-up. (5) Acute kidney injury (nontraumatic): Etiology is unclear. Plan The other problems are possible UTI Hypothyroidism Thrombocytopenia Dyslipidemia Lexiscan/extremity stenosis or restenosis in the morning Based on the results, further recommendations will be made Attestations Medical Necessity Statement*: Patient requires continued hospital stay for close monitoring and further management Coding Level of Care Code 15325 Diagnoses Non-ST elevation TN (NSTEMI) I21.4 Coronary artery disease I25.10 Hypertension I10 Neutrophilic leukocytosis D72.9 Acute kidney injury (nontraumatic) N17.9
[2022-11-29] VITALS (7 sets, daily range): BP systolic 150–166; BP diastolic 61–89; PULSE 65–97; RESP 16–25; TEMP 36.3–37.2; O2SAT 93–98
[2022-11-29] MEDS: meropenem 500 MG in sodium chloride 0.9% (plus) 50 ML 100 MG IV (02:39)
[2022-11-29] MEDS: sodium chloride 0.9% 1,000 ML 30 ML IV (06:12)
[2022-11-29] MEDS: enoxaparin 100 mg/mL Syringe 70 MG SUBCUT (06:12)
[2022-11-29] MEDS: regadenoson 0.4 Mg/5 ml Syringe IVP (07:31)
[2022-11-29 07:33] LABS: Basophils % 0.1 %; Eosinophils % 0.2 %; Hematocrit 34.9 % (42.0-52.0); Hemoglobin 11.5 g/dL (11.7-16.6); Lymphocytes # 0.6 10^3/uL (0.8-4.8); Lymphocytes % 7.4 %; Mean Corpuscular Hemoglobin 31.1 pg (28.0-34.0); Mean Corpuscular Volume 94.3 fl (80-94); Mean Platelet Volume 12.7 fL (7.4-10.4); Monocytes # 0.7 10^3/uL (0.2-0.9); Monocytes % 7.9 %; Neutrophils % 82.6 %; Nucleated Red Blood Cells % 0 %; Platelet Count 118 10^3/cmm (130-400); Red Cell Distribution Width 14.6 % (12.1-15.1); White Blood Count 8.5 10^3/uL (4.0-10.0)
[2022-11-29 07:49] LABS: Anion Gap 15.6 (5-19); Blood Urea Nitrogen 17 mg/dL (8-23); Carbon Dioxide 20 mmol/L (22-29); Chloride 106 mmol/L (98-107); Glucose 109 mg/dL (65-115); Osmolality Calculated 288 mOsm/kg (285-295); Potassium 3.6 mmol/L (3.5-5.1); Sodium 138 mmol/L (136-145)
[2022-11-29] MEDS: vancomycin 1,000 MG in sodium chloride 0.9% 250 ML 250 MG IV (09:07)
[2022-11-29] MEDS: doxazosin 1 mg Tablet PO (09:08)
[2022-11-29] MEDS: potassium chloride ER 20 mEq Tablet PO (09:08)
[2022-11-29] MEDS: pantoprazole DR 40 mg Tablet PO (09:08)
[2022-11-29] MEDS: aspirin 81 mg EC Tablet PO (09:08)
[2022-11-29] MEDS: losartan 50 mg Tablet PO (09:08)
[2022-11-29] MEDS: levothyroxine 50 mcg Tablet PO (09:08)
[2022-11-29] MEDS: amlodipine 10 mg Tablet PO (09:08)
[2022-11-29] MEDS: tamsulosin 0.4 mg Capsule PO (09:09)
[2022-11-29] MEDS: fluticasone nasal spray 16gm Btl 2 SPRAY INTRANASAL (09:32)
--- NOTE | 2022-11-29 10:28 | PM.DCS ---
Discharge Providers Date of Admission: 11/25/22 20:41 Date of Discharge: November 29, 2022 Attending Provider at Admission: Simon Morales MD Attending Provider at Discharge: Isa Stockton MD Primary Care Provider: Chanda Waer DO Diagnoses at Discharge Discharge Diagnosis (1) Non-ST elevation AL (NSTEMI): Status: Acute (2) Coronary artery disease: Status: Acute (3) Hypertension: Status: Acute (4) Neutrophilic leukocytosis: Status: Acute (5) Acute kidney injury (nontraumatic): Status: Acute Reason for Visit Reason for Visit: HEADACHE/ CHEST PAIN Hospital Course Hospital Course 87-year male who presented to the hospital with chief complaint of chest tightness he has history of PCI 2008, remained chest pain-free during hospitalization he was put on ACS protocol at the time of admission, please note leukemia lymphoma panel was requested for significant leukocytosis it was around 44,000 however it started trending down as soon as we started him on IV antibiotics meropenem for possible complicated UTI, patient has history of BPH, urinary retention he was only voiding 50 cc of urine every time he wanted to go to the bathroom, after placement of Schaffer catheter adequate urine output was recorded, his white count normalized with antibiotics, he remained afebrile, at the time of discharge white count was 8.5, afebrile, cultures negative, CT chest abdomen pelvis did not show acute pathological findings, urine culture showed pansensitive E. coli, he was discharged on levofloxacin and a Schaffer catheter. Has an appointment with his urologist in [place] Physical Exam Narrative: Hemoglobin Awake and alert Currently on room air Abdomen soft Nonfocal neuro exam GCS 15 Urinary Catheter Management: Shcaffer: Cath Placed During This Visit: yes Reason for Continuing Indwelling Catheter: Acute Urinary Retention or Obstruction Urinary Catheter Date of Insertion: 11/28/22 Urinary Catheter Time of Insertion: 14:30 Discharge Data Studies Completed and Pending Completed Studies During Hospitalization Category Date Time Status CT chest abdpel w/*[id number] Routine Cat Scan 11/26/22 06:27 Completed Sestamibi Stress Test Request Routine Exams 11/28/22 12:48 Draft XR chest 1V portable [id number] Stat Exams 11/25/22 17:18 Completed CV. echo complete* [id number] Routine Ultrasound 11/25/22 20:44 Completed Pending at discharge Category Date Time Status Blood Culture Routine Lab 11/26/22 06:45 Results Sputum Culture and Gram Stain Routine Lab 11/26/22 06:29 Uncollected Vancomycin Trough Timed Lab 11/30/22 07:00 Ordered NM rickey perf SPECT r/s* [id number] Routine Nuc Med 11/29/22 12:48 Ordered Radiology Impressions Chest X-Ray 11/25/22 17:18 IMPRESSION: No acute findings. Chest/Abdomen/Pelvis CT 11/26/22 06:27 IMPRESSION: 1. Lung evaluation is limited by significant breathing artifact. No dense areas of consolidation identified. Subtle areas of pneumonitis or endobronchial pneumonia may be obscured. 2. No adenopathy in the chest, abdomen or pelvis. 3. Colonic diverticular disease. No acute diverticulitis. 4. Normal appendix. 5. Prior cholecystectomy. 6. Bilateral renal cysts. No renal obstruction. 7. 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 Component of stenosis is likely. No ischemic changes at this time. Laboratory Results WBC 8.5 10^3/uL (4.0-10.0) 11/29/22 07:24 RBC 3.70 10^6/uL (4.1-5.3) L 11/29/22 07:24 Hgb 11.5 g/dL (11.7-16.6) L 11/29/22 07:24 Hct 34.9 % (42.0-52.0) L 11/29/22 07:24 MCV 94.3 fl (80-94) H 11/29/22 07:24 MCH 31.1 pg (28.0-34.0) 11/29/22 07:24 MCHC 33.0 g/dL (30.0-36.0) 11/29/22 07:24 RDW 14.6 % (12.1-15.1) 11/29/22 07:24 Plt Count 118 10^3/cmm (130-400) L 11/29/22 07:24 MPV 12.7 fL (7.4-10.4) H 11/29/22 07:24 Neut % (Auto) 82.6 % 11/29/22 07:24 Lymph % (Auto) 7.4 % 11/29/22 07:24 [place] % (Auto) 7.9 % 11/29/22 07:24 Eos % (Auto) 0.2 % 11/29/22 07:24 Baso % (Auto) 0.1 % 11/29/22 07:24 Neut # (Auto) 7.00 10^3/uL (1.8-7.7) 11/29/22 07:24 Lymph # (Auto) 0.6 10^3/uL (0.8-4.8) L 11/29/22 07:24 [place] # (Auto) 0.7 10^3/uL (0.2-0.9) 11/29/22 07:24 Eos # (Auto) 0.0 10^3/uL (0.0-0.8) 11/29/22 07:24 Baso # (Auto) 0.0 10^3/uL (0.0-0.1) 11/29/22 07:24 Nucleated RBC % (auto) 0 % 11/29/22 07:24 Total Counted 100 (0-100) 11/26/22 04:30 Atypical Lymphs % 0.0 % (0-5) 11/26/22 04:30 Absolute Neutrophils 39.7 10^3/cmm (1.4-6.5) H 11/26/22 04:30 Segmented Neutrophils 85 % 11/26/22 04:30 Abs Segm Neuts (Man) 37.5 10/cmm (1.6-7.1) H 11/26/22 04:30 Band Neutrophils 5.0 % 11/26/22 04:30 Abs Band Neuts (Man) 2.2 10^3/cmm (0.0-1.2) H 11/26/22 04:30 Absolute Lymphocytes 0.4 10^3/cmm (1.2-3.4) L 11/26/22 04:30 Lymphocytes (Manual) 1 % 11/26/22 04:30 Monocytes (Manual) 9.0 % 11/26/22 04:30 Absolute Monocytes 4.0 10^3/cmm (0.1-0.6) H 11/26/22 04:30 Eosinophils (Manual) 0 % 11/26/22 04:30 Absolute Eosinophils 0.0 10^3/cmm (0.0-0.7) 11/26/22 04:30 Basophils (Manual) 0.0 % 11/26/22 04:30 Absolute Basophils 0.0 10^3/cmm (0.0-0.2) 11/26/22 04:30 Nucleated RBCs # 0.0 /100WBC 11/29/22 07:24 Platelet Estimate Decreased (Normal) 11/26/22 04:30 Rouleaux 1+ H 11/26/22 04:30 Sodium 138 mmol/L (136-145) 11/29/22 07:24 Potassium 3.6 mmol/L (3.5-5.1) 11/29/22 07:24 Chloride 106 mmol/L (98-107) 11/29/22 07:24 Carbon Dioxide 20 mmol/L (22-29) L 11/29/22 07:24 Anion Gap 15.6 (5-19) 11/29/22 07:24 BUN 17 mg/dL (8-23) 11/29/22 07:24 Creatinine 1.0 mg/dL (0.7-1.2) 11/29/22 07:24 GFR Calculation Not Reportable 11/29/22 07:24 Glucose 109 mg/dL (65-115) 11/29/22 07:24 Calculated Osmolality 288 mOsm/kg (285-295) 11/29/22 07:24 Lactic Acid 1.6 mmol/L (0.5-2.2) 11/26/22 06:45 Calcium 9.0 mg/dL (8.5-10.5) 11/29/22 07:24 Magnesium 1.8 mg/dL (1.7-2.3) 11/26/22 03:42 Total Bilirubin 0.6 mg/dL (0.15-1.2) 11/28/22 02:32 AST 26 U/L (0-40) 11/28/22 02:32 ALT 19 U/L (0-41) 11/28/22 02:32 Alkaline Phosphatase 35 U/L (40-130) L 11/28/22 02:32 Troponin T Baseline 41 ng/L (0-15) H 11/25/22 17:45 Troponin T 120 Minute 58.37 ng/L (0-15) H 11/25/22 19:30 Delta Troponin T 17.37 ABS# (0-10) H* 11/25/22 19:30 Troponin T Hi Sens 6Hr 80.83 ng/L (0-15) H 11/25/22 23:40 Troponin T Hi Sens 6Hr Delta 39.83 ng/L (0-12) H* 11/25/22 23:40 NT-Pro-B Natriuret Pep 2841 pg/mL (0-450) H 11/26/22 03:42 Total Protein 6.1 g/dL (6.6-8.7) L 11/28/22 02:32 Albumin 3.3 g/dL (3.5-5.2) L 11/28/22 02:32 Globulin 2.8 g/dL (1.3-4.6) 11/28/22 02:32 Procalcitonin 0.78 ng/mL (0-0.5) H 11/26/22 03:42 TSH 1.13 uIU/mL (0.27-4.20) 11/26/22 03:42 Urine Color Yellow (Yellow) 11/25/22 21:50 Urine Appearance Clear (CLEAR) 11/25/22 21:50 Urine pH 6 (5-7) 11/25/22 21:50 Ur Specific Reynolds 1.015 (1.005-1.030) 11/25/22 21:50 Urine Protein Neg (Negative) 11/25/22 21:50 Urine Glucose (UA) Norm (Normal) 11/25/22 21:50 Urine Ketones Negative (Negative) 11/25/22 21:50 Urine Blood 3+ (Negative) H 11/25/22 21:50 Urine Nitrate Positive (Negative) H 11/25/22 21:50 Urine Bilirubin Neg (Negative) 11/25/22 21:50 Urine Urobilinogen Norm mg/dL (Negative) 11/25/22 21:50 Ur Leukocyte Esterase 2+ (Negative) H 11/25/22 21:50 Urine RBC 80-100 /hpf (0-2) H 11/25/22 21:50 Urine WBC 80-100 /hpf (0-5) H 11/25/22 21:50 Ur Squamous Epith Cells 0-4 /hpf (0-5) H 11/25/22 21:50 Amorphous Sediment Not Reportable 11/25/22 21:50 Urine Bacteria 2+ /hpf (NONE) H 11/25/22 21:50 Nasal Influ A H1 2009 PCR Not detected (NOT DETECT) 11/26/22 20:55 Adenovirus (PCR) Not detected (NOT DETECT) 11/26/22 20:55 C. pneumoniae DNA (PCR) Not detected (NOT DETECT) 11/26/22 20:55 Coronavirus 229E (PCR) Not detected (NOT DETECT) 11/26/22 20:55 Human Metapneumovir PCR Not detected (NOT DETECT) 11/26/22 20:55 Influenza A (H1) PCR Not detected (NOT DETECT) 11/26/22 20:55 Influenza A (H3) PCR Not detected (NOT DETECT) 11/26/22 20:55 Influenza Type A (PCR) Not detected (NOT DETECT) 11/26/22 20:55 Influenza Type B (PCR) Not detected (NOT DETECT) 11/26/22 20:55 M. pneumoniae (PCR) Not detected (NOT DETECT) 11/26/22 20:55 Parainfluenza 1 (PCR) Not detected (NOT DETECT) 11/26/22 20:55 Parainfluenza 2 (PCR) Not detected (NOT DETECT) 11/26/22 20:55 Parainfluenza 3 (PCR) Not detected (NOT DETECT) 11/26/22 20:55 Parainfluenza 4 (PCR) Not detected (NOT DETECT) 11/26/22 20:55 RSV Type A (PCR) Not detected (NOT DETECT) 11/26/22 20:55 RSV Type B (PCR) Not detected (NOT DETECT) 11/26/22 20:55 Entero/Rhino (PCR) Not detected (NOT DETECT) 11/26/22 20:55 SARS-CoV-2 (PCR) Not detected (NOT DETECT) 11/26/22 20:55 Vitals Last Vital Signs Temp 98.9 F 11/29/22 04:00 Pulse 87 11/29/22 08:00 Resp 25 H 11/29/22 08:00 BP 164/67 11/29/22 09:08 Pulse Ox 98 11/29/22 08:00 O2 Del Method 11/29/22 08:00 Discharge Plan Discharge Patient Disposition: Home Condition: Stable Prescriptions: New amlodipine 10 mg Tablet 10 mg PO DAILY Qty: 30 0RF levofloxacin 750 mg tablet 750 mg PO DAILY 10 Days Qty: 10 0RF metoprolol succinate 25 mg Tablet Extended Release 24 Hr 12.5 mg PO DAILY Qty: 30 0RF losartan 50 mg Tablet 50 mg PO DAILY Qty: 30 0RF Continued omeprazole 20 mg capsule,delayed release(DR/EC) 20 mg PO BEDTIME clopidogrel 75 mg tablet 75 mg PO DAILY@12 doxazosin [Cardura] 2 mg tablet 1 mg PO BEDTIME simvastatin 20 mg tablet 20 mg PO BEDTIME gabapentin 300 mg capsule 300 mg PO DAILY PRN (Reason: pain) fluticasone propionate 50 mcg/actuation spray,suspension 2 spray INTRANASAL DAILY PRN (Reason: Allergy Symptoms) aspirin [Adult Low Dose Aspirin] 81 mg tablet,delayed release (DR/EC) 81 mg PO QAM levothyroxine 50 mcg tablet 50 mcg PO QAM Tylenol Ex Str Rapid Release 500 mg Tablet 500 mg PO Q6H PRN (Reason: Pain) Centrum Silver Tablet 1 tab PO QAM Changed Flomax 0.4 mg Capsule 0.4 mg PO BID Qty: 60 2RF Discontinued valsartan 160 mg tablet 160 mg PO BID Discharge Orders: Discharge Order (Routine); Ordered 11/29/22 Ordered By: Isa Stockton Referrals: Chanda Ware DO [Primary Care Provider] - 2 weeks Patient Instructions: Opioid Safety Discharge Attestations Time Spent in Discharge Care*: less than 30 min Quality Metrics Clinical Quality Measures [ No reported AMI, CVA or VTE this stay] Coding Level of Care Code Acute Code for [facility] Fwd Diagnoses Non-ST elevation AL (NSTEMI) I21.4 Coronary artery disease I25.10 Hypertension I10 Neutrophilic leukocytosis D72.9 Acute kidney injury (nontraumatic) N17.9
[2022-11-29 11:18] LABS: Leukemia Profile (BBPL) See Report; Lymphoma Profile (BBPL) See Report
--- NOTE | 2022-11-29 12:48 | NMCV_ITS ---
NM rickey perf SPECT r/s* [id number] Satnam Coffman Age: 87 Gender: M : 1935 Exam Date: 11/29/2022 12:48 Ordering Phys: Noe Salazar MD ([email or web address]) Technologist: SRIDHAR [place] Exam Location: [facility] Indications: CHEST PAIN STRESS TEST Please see separate stress test report in [facility] for full findings IMAGE PROTOCOL Rest/Stress 1 Lexiscan Day Radiopharmaceutical Dose (mCi) Administration Site Administered by Rest: Tc-99m 10.8 IV SRIDHAR Lambert Sestamibi Stress:Tc-99m 32.4 IV SRIDHAR Lambert Sestamibi Rest: 29-Nov-2022 60 Discovery 630 Stress: 29-Nov-2022 30 Discovery 630 0.4mg Lexiscan. Supine position only as patient was unable to lay prone. SPECT RESULTS Technical Quality: Excellent Raw Data Analysis: Normal Image Corrections: No attenuation or motion correction applied Summed Stress Score: 0 Summed Rest Score: 0 Summed Difference Score: 0 PERFUSION FINDINGS Uniform myocardial tracer uptake. No significant perfusion abnormalities. FUNCTIONAL RESULTS (calculated via Gated SPECT) Stress Image LV EF (%): 71 Stress EDV (mL):73 TID: 0.96 Stress ESV (mL):21 FUNCTIONAL FINDINGS: Segmental wall motion analysis revealing no gross wall motion abnormalities IMPRESSIONS 1. Unremarkable Myocardial perfusion imaging 2. Normal LV ejection fraction of 71%. 3. LV wall motion analysis revealing no gross wall motion abnormalities. 4. Normal LV volume Low probability for coronary ischemia, based on the above findings Dr Noe Salazar MD FAC (Electronically Signed) Final Date: 29 November 2022 13:40 S
== END 2022-11-29 15:07 | disposition home or self-care (01) | DRG 690 ==
LOC: ER 20:23 → CSU 20:39
PROVIDERS: Family Medicine; Internal Medicine; Admitting Provider Internal Medicine; Emergency Provider Emergency Medicine; PCP Family Medicine; Visit Provider Internal Medicine
DX: N39.0 Urinary tract infection, site not specified (principal); N17.9 Acute kidney failure, unspecified; R07.9 Chest pain, unspecified; N13.8 Other obstructive and reflux uropathy; I25.10 Atherosclerotic heart disease of native coronary artery without angina pectoris; Z95.5 Presence of coronary angioplasty implant and graft; B96.20 Unspecified Escherichia coli [E. coli] as the cause of diseases classified elsewhere; N40.1 Benign prostatic hyperplasia with lower urinary tract symptoms; R33.8 Other retention of urine; R35.0 Frequency of micturition; Z79.02 Long term (current) use of antithrombotics/antiplatelets; Z79.82 Long term (current) use of aspirin; I12.9 Hypertensive chronic kidney disease with stage 1 through stage 4 chronic kidney disease, or unspecified chronic kidney disease; N18.9 Chronic kidney disease, unspecified; E03.9 Hypothyroidism, unspecified; Z88.0 Allergy status to penicillin; Z96.659 Presence of unspecified artificial knee joint; Z96.643 Presence of artificial hip joint, bilateral; D69.6 Thrombocytopenia, unspecified; K21.9 Gastro-esophageal reflux disease without esophagitis; D72.828 Other elevated white blood cell count; E78.5 Hyperlipidemia, unspecified; I44.1 Atrioventricular block, second degree
CPT/HCPCS: 11721; 36415; 51702; 51798; 71045; 71260; 74177; 78452; 80048; 80053; 80503; 81001; 83605; 83735; 83880; 84145; 84443; 84484; 85007; 85025; 87040; 87077; 87086; 87186; 87486; 87493; 87581; 87633; 87641; 88184; 88185; 93005; 93017; 93306; 96372; 96374; 99204; 99285; A9500; J0696; J1650; J2185; J2785; J3370; J7030; J7040; J7050; Q9967

== ENCOUNTER → 2023-01-24 12:33 | Outpatient (BNVA) | payer MEDICARE, SELFPAY | PROVIDERS: PCP Family Medicine; Visit Provider Podiatrist Foot & Ankle Surgery | DX: I73.9 Peripheral vascular disease, unspecified (principal); B35.1 Tinea unguium; R60.9 Edema, unspecified; M20.41 Other hammer toe(s) (acquired), right foot; M20.42 Other hammer toe(s) (acquired), left foot | CPT/HCPCS: 11721 ==

== ENCOUNTER → 2023-05-09 07:39 | Outpatient (BNVA) | payer MEDICARE, SELFPAY | PROVIDERS: PCP Family Medicine; Visit Provider Podiatrist Foot & Ankle Surgery | DX: B35.1 Tinea unguium (principal); I73.9 Peripheral vascular disease, unspecified; R60.9 Edema, unspecified; M20.41 Other hammer toe(s) (acquired), right foot; M20.42 Other hammer toe(s) (acquired), left foot | CPT/HCPCS: 11721 ==

== ENCOUNTER → 2023-05-12 14:31 | Outpatient (BNVA) | payer MEDICARE, SELFPAY | PROVIDERS: PCP Family Medicine; Visit Provider Internal Medicine | DX: I25.10 Atherosclerotic heart disease of native coronary artery without angina pectoris (principal); I13.0 Hypertensive heart and chronic kidney disease with heart failure and stage 1 through stage 4 chronic kidney disease, or unspecified chronic kidney disease; N18.9 Chronic kidney disease, unspecified; I50.9 Heart failure, unspecified | CPT/HCPCS: 99214 ==

== ENCOUNTER → 2023-07-11 07:39 | Outpatient (BNVA) | payer MEDICARE, SELFPAY | PROVIDERS: PCP Registered Nurse; Visit Provider Podiatrist Foot & Ankle Surgery | DX: B35.1 Tinea unguium (principal); R60.9 Edema, unspecified; M20.41 Other hammer toe(s) (acquired), right foot; M20.42 Other hammer toe(s) (acquired), left foot; E11.9 Type 2 diabetes mellitus without complications | CPT/HCPCS: 11721 ==

== ENCOUNTER → 2023-09-12 13:11 | Outpatient (BNVA) | payer MEDICARE, SELFPAY | PROVIDERS: PCP Registered Nurse; Visit Provider Podiatrist Foot & Ankle Surgery | DX: B35.1 Tinea unguium (principal); E11.9 Type 2 diabetes mellitus without complications; R60.9 Edema, unspecified; M20.41 Other hammer toe(s) (acquired), right foot; M20.42 Other hammer toe(s) (acquired), left foot | CPT/HCPCS: 11721 ==

== ENCOUNTER → 2023-11-17 13:58 | Outpatient (BNVA) | payer MEDICARE, SELFPAY | PROVIDERS: PCP Registered Nurse; Visit Provider Internal Medicine | DX: I25.10 Atherosclerotic heart disease of native coronary artery without angina pectoris (principal); I13.0 Hypertensive heart and chronic kidney disease with heart failure and stage 1 through stage 4 chronic kidney disease, or unspecified chronic kidney disease; N18.9 Chronic kidney disease, unspecified; I50.9 Heart failure, unspecified | CPT/HCPCS: 99214 ==

== ENCOUNTER → 2023-12-12 10:32 | Outpatient (BNVA) | payer MEDICARE, SELFPAY | PROVIDERS: PCP Registered Nurse; Visit Provider Podiatrist Foot & Ankle Surgery | DX: B35.1 Tinea unguium (principal); R60.9 Edema, unspecified; M20.41 Other hammer toe(s) (acquired), right foot; M20.42 Other hammer toe(s) (acquired), left foot; E11.69 Type 2 diabetes mellitus with other specified complication | CPT/HCPCS: 11721 ==

== ENCOUNTER → 2024-03-02 09:41 | Outpatient (BNVA) | payer MEDICARE, SELFPAY | PROVIDERS: PCP Registered Nurse; Visit Provider Podiatrist Foot & Ankle Surgery | DX: B35.1 Tinea unguium (principal); E11.9 Type 2 diabetes mellitus without complications; R60.9 Edema, unspecified; M20.41 Other hammer toe(s) (acquired), right foot; M20.42 Other hammer toe(s) (acquired), left foot | CPT/HCPCS: 11721 ==

== ENCOUNTER 2024-03-19 13:02 | Oncology outpatient (recurring) (ONCR) | payer MEDICARE, SELFPAY ==
[2024-03-19 15:01] LABS: Eosinophils # 0.3 10^3/uL (0.0-0.8); Eosinophils % 9.7 %; Hematocrit 36.1 % (37-53); Lymphocytes % 32.1 %; Mean Corpuscular HGB Conc 33.2 g/dL (30-55); Mean Corpuscular Volume 93.3 fl (82-101); Mean Platelet Volume 12.6 fL (7.4-10.4); Monocytes # 0.5 10^3/uL (0.2-0.9); Monocytes % 17.2 %; Neutrophils # 1.25 10^3/uL (1.8-7.7); Neutrophils % 40.7 %; Nucleated Red Blood Cells % 0 %; Platelet Count 141 10^3/cmm (157-399); Red Blood Count 3.87 10^6/uL (3.85-5.65); Red Cell Distribution Width 14.4 % (12.1-15.1); White Blood Count 3.08 10^3/uL (3.29-11.43)
[2024-03-19 15:15] LABS: Erythrocyte Sedimentation Rate 13 mm/hr (0-10)
[2024-03-19 15:39] LABS: Alanine Aminotransferase 10 U/L (0-41); Albumin Level 4.4 g/dL (3.5-5.2); Alkaline Phosphatase 27 U/L (40-130); Anion Gap 16.1 (5-19); Aspartate Amino Transferase 14 U/L (0-40); Blood Urea Nitrogen 19 mg/dL (8-23); Calcium 9.4 mg/dL (8.5-10.5); Carbon Dioxide 22 mmol/L (22-29); Chloride 103 mmol/L (98-107); Ferritin 57 ng/mL (30-400); Globulin 2.9 g/dL (1.3-4.6); Glucose 104 mg/dL (65-115); Iron 74 ug/dL (59-158); Lactate Dehydrogenase 160 U/L (135-225); Osmolality Calculated 287 mOsm/kg (285-295); Percent Saturation 33.6 % (20-50); Potassium 4.1 mmol/L (3.5-5.1); Sodium 137 mmol/L (136-145); Thyroid Stimulating Hormone 4.31 uIU/mL (0.27-4.20); Total Bilirubin 0.5 mg/dL (0.15-1.2); Total Iron Binding Capacity 220 mcg/dl; Total Protein 7.3 g/dL (6.6-8.7); Unsaturated Iron Binding 146 ug/dL (112-347); Vitamin B12 402 pg/mL (232-1245)
[2024-03-19 16:15] LABS: LAB Peripheral Smear Sent for Review
[2024-03-19 18:52] LABS: Folate Level > 20.0 ng/mL (4.5-32.2)
[2024-03-20 11:40] LABS: KAPPA LIGHT CHAIN, FREE, SERUM 67.7 mg/L (3.3-19.4); KAPPA/LAMBDA LIGHT CHAINS FREE 1.66 (0.26-1.65); LAMBDA LIGHT CHAIN, FREE, SERU 40.8 mg/L (5.7-26.3)
[2024-03-20 15:59] LABS: ALBUMIN 4.1 g/dL (3.8-4.8); ALPHA 1 GLOBULIN 0.3 g/dL (0.2-0.3); ALPHA 2 GLOBULIN 0.6 g/dL (0.5-0.9); BETA 1 GLOBULIN 0.4 g/dL (0.4-0.6); BETA 2 GLOBULIN 0.4 g/dL (0.2-0.5); GAMMA GLOBULIN 1.2 g/dL (0.8-1.7)
== END 2024-04-08 23:59 | disposition home or self-care (01) ==
PROVIDERS: PCP Registered Nurse; Visit Provider Internal Medicine Medical Oncology
DX: D64.9 Anemia, unspecified (principal); R53.83 Other fatigue; D61.818 Other pancytopenia
CPT/HCPCS: 36415; 80053; 82607; 82728; 82746; 83540; 83550; 83615; 83883; 84155; 84165; 84443; 85025; 85651; 86140; 99204

== ENCOUNTER → 2024-05-15 08:53 | Outpatient (BNVA) | payer MEDICARE, SELFPAY | PROVIDERS: PCP Registered Nurse; Visit Provider Podiatrist Foot & Ankle Surgery | DX: B35.1 Tinea unguium (principal); R60.9 Edema, unspecified; M20.41 Other hammer toe(s) (acquired), right foot; M20.42 Other hammer toe(s) (acquired), left foot; E11.69 Type 2 diabetes mellitus with other specified complication | CPT/HCPCS: 11721 ==

== ENCOUNTER 2024-06-26 12:34 | Oncology outpatient (recurring) (ONCR) | payer MEDICARE, SELFPAY ==
[2024-06-26 13:09] LABS: Eosinophils % 1.1 %; Hematocrit 31.8 % (37-53); Lymphocytes # 1.2 10^3/uL (0.8-4.8); Lymphocytes % 41.9 %; Mean Corpuscular Hemoglobin 32.7 pg (27-33); Mean Corpuscular Volume 96.4 fl (82-101); Mean Platelet Volume 12.6 fL (7.4-10.4); Monocytes # 0.5 10^3/uL (0.2-0.9); Monocytes % 17.3 %; Neutrophils # 1.09 10^3/uL (1.8-7.7); Neutrophils % 39.3 %; Nucleated Red Blood Cells % 0 %; Platelet Count 128 10^3/cmm (157-399); Red Cell Distribution Width 14.8 % (12.1-15.1); White Blood Count 2.77 10^3/uL (3.29-11.43)
[2024-06-26 13:37] LABS: Alanine Aminotransferase 10 U/L (0-41); Albumin Level 4.2 g/dL (3.5-5.2); Alkaline Phosphatase 26 U/L (40-130); Anion Gap 17.3 (5-19); Aspartate Amino Transferase 14 U/L (0-40); Blood Urea Nitrogen 26 mg/dL (8-23); Calcium 9.1 mg/dL (8.5-10.5); Carbon Dioxide 21 mmol/L (22-29); Chloride 108 mmol/L (98-107); Ferritin 89 ng/mL (30-400); Globulin 2.8 g/dL (1.3-4.6); Glucose 93 mg/dL (65-115); Iron 81 ug/dL (59-158); Lactate Dehydrogenase 136 U/L (135-225); Osmolality Calculated 298 mOsm/kg (285-295); Percent Saturation 44.7 % (20-50); Potassium 4.3 mmol/L (3.5-5.1); Sodium 142 mmol/L (136-145); Thyroid Stimulating Hormone 3.66 uIU/mL (0.27-4.20); Total Bilirubin 0.5 mg/dL (0.15-1.2); Total Iron Binding Capacity 181 mcg/dl; Unsaturated Iron Binding 100 ug/dL (112-347)
[2024-07-02 13:36] LABS: Soluble Transferrin Receptor 0.93 mg/L (0.76-1.76)
== END 2024-07-09 23:59 | disposition home or self-care (01) ==
LOC: ONCMED 12:35
PROVIDERS: PCP Registered Nurse; Visit Provider Internal Medicine Medical Oncology
DX: R53.83 Other fatigue; D61.818 Other pancytopenia; D64.9 Anemia, unspecified
CPT/HCPCS: 36415; 80053; 82728; 83540; 83550; 83615; 84238; 84443; 85025; 99214

== ENCOUNTER → 2024-07-17 08:38 | Outpatient (BNVA) | payer MEDICARE, SELFPAY | PROVIDERS: PCP Registered Nurse; Visit Provider Podiatrist Foot & Ankle Surgery | DX: B35.1 Tinea unguium (principal); R60.9 Edema, unspecified; M20.41 Other hammer toe(s) (acquired), right foot; M20.42 Other hammer toe(s) (acquired), left foot; E11.69 Type 2 diabetes mellitus with other specified complication | CPT/HCPCS: 11721 ==